=== PATIENT | male | born 1940 ===

== ENCOUNTER → 2019-05-26 | Outpatient (CLI) | payer MEDICARE, OTHER ==
[~2019-05-26] MED LIST: ASCO500 PO; ASPI81CH PO; Cipro500 MG PO; FINA5 PO; LEVSOD75 PO; Rapaflo8 MG PO; SIMV10 PO; Valium5 MG PO; Zofran Odt4 MG PO
== END ==
LOC: LAB 13:16 → LAB SHORT 13:16
DX: N39.0 Urinary tract infection, site not specified (principal); R30.0 Dysuria
CPT/HCPCS: 87086

== ENCOUNTER 2019-06-11 21:01 | Emergency (ER) | payer MEDICARE, OTHER ==
[~2019-06-11] VITALS: Ht 170.2 cm; Wt 63.5 kg
[2019-06-11] MEDS ORDERED: LEVSOD75 PO (21:37)
== END 2019-06-11 22:40 | disposition home or self-care (01) ==
LOC: ER 21:01
DX: T40.2X1A Poisoning by other opioids, accidental (unintentional), initial encounter (principal); Z88.8 Allergy status to other drugs, medicaments and biological substances; Z79.899 Other long term (current) drug therapy; Z79.82 Long term (current) use of aspirin; Z85.51 Personal history of malignant neoplasm of bladder
CPT/HCPCS: 99283

== ENCOUNTER → 2019-11-02 | Outpatient (CLI) | payer MEDICARE, OTHER | END | disposition home or self-care (01) | LOC: LAB 09:30 → LAB SHORT 09:30 | DX: C67.2 Malignant neoplasm of lateral wall of bladder (principal) | CPT/HCPCS: 88108 ==

== ENCOUNTER → 2020-01-31 | Outpatient (CLI) | payer MEDICARE, OTHER ==
[2020-01-31 14:09] LABS: Source, Urine Clean Catch
[2020-01-31 16:01] LABS: Bilirubin, Urine Neg (Neg); Blood, Urine 4+ (Neg); Glucose Qualitative, Urine Neg (Neg); Ketones, Urine Neg (Neg); Leukocyte Esterase, Urine 3+ (Neg); Nitrite, Urine Neg (Neg); Protein, Urine 2+ (Neg); Specific Gravity, Urine 1.015 (1.003-1.022); Urobilinogen, Urine NORM (Normal)
[2020-01-31 16:42] LABS: Appearance, Urine Hazy (Clear); Color, Urine Yellow (P-Yellow); Red Blood Cells, Urine TNTC /hpf (0-2); White Blood Cells, Urine TNTC /hpf (0-5)
[2020-01-31 16:43] LABS: Bacteria Many /hpf; Squamous Epithelial Cells Few /hpf (Few)
== END | disposition home or self-care (01) ==
LOC: LAB SHORT 13:48 → LAB 13:48 → EDSTATUS 16:04
PROVIDERS: Urology
DX: N39.0 Urinary tract infection, site not specified (principal)
CPT/HCPCS: 81001

== ENCOUNTER → 2020-05-01 | Outpatient (CLI) | payer MEDICARE, OTHER | END | disposition home or self-care (01) | LOC: LAB SHORT 03:17 → LAB 03:17 → LAB FUT 04-22 08:00 | PROVIDERS: Physician Assistant | DX: E11.8 Type 2 diabetes mellitus with unspecified complications (principal); I10 Essential (primary) hypertension | CPT/HCPCS: 81050; 82043; 82570 ==

== ENCOUNTER → 2020-09-19 | Outpatient (CLI) | payer MEDICARE, OTHER | LOC: LAB 15:13 → LAB SHORT 15:13 | DX: R30.0 Dysuria (principal) | CPT/HCPCS: 87086 ==

== ENCOUNTER → 2021-01-23 | Outpatient (CLI) | payer MEDICARE, OTHER ==
[~2021-01-23] MED LIST changes: -ASPI81CH PO; +Aspirin EC81 MG PO; +CEFD300 PO; +DOCU100 PO; +Lisinopril2.5 MG PO; +MAGCIT300 PO; +MIRALAX17 GM PO; +PANT40 PO; +SENN187 PO; +THERA-D2000 UNIT PO
== END | disposition home or self-care (01) ==
LOC: LAB SHORT 15:25 → LAB 15:25
DX: R35.0 Frequency of micturition (principal)
CPT/HCPCS: 87086

== ENCOUNTER → 2021-02-21 | Outpatient (CLI) | payer MEDICARE, OTHER ==
[~2021-02-21] MED LIST changes: +ASPI81CH PO; -Aspirin EC81 MG PO; -CEFD300 PO; -DOCU100 PO; -Lisinopril2.5 MG PO; -MAGCIT300 PO; -MIRALAX17 GM PO; -PANT40 PO; -SENN187 PO; -THERA-D2000 UNIT PO
== END | disposition home or self-care (01) ==
LOC: LAB SHORT 09:20
DX: R30.0 Dysuria (principal)
CPT/HCPCS: 87077; 87086; 87186

== ENCOUNTER → 2021-04-01 | Outpatient (CLI) | payer MEDICARE, OTHER ==
[~2021-04-01] MED LIST changes: -ASPI81CH PO; +Aspirin EC81 MG PO; +CEFD300 PO; +DOCU100 PO; +Lisinopril2.5 MG PO; +MAGCIT300 PO; +MIRALAX17 GM PO; +PANT40 PO; +SENN187 PO; +THERA-D2000 UNIT PO
== END ==
LOC: LAB 16:30 → LAB SHORT 16:30
DX: N39.9 Disorder of urinary system, unspecified (principal)
CPT/HCPCS: 87077; 87086; 87186

== ENCOUNTER → 2021-04-09 | Outpatient (CLI) | payer MEDICARE, OTHER ==
[2021-04-10 18:05] LABS: Appearance, Urine Hazy (Clear); Bilirubin, Urine Neg (Neg); Blood, Urine 5+ (Neg); Color, Urine Yellow (P-Yellow); Glucose Qualitative, Urine Neg (Neg); Ketones, Urine Neg (Neg); Leukocyte Esterase, Urine 3+ (Neg); Nitrite, Urine Neg (Neg); Protein, Urine 3+ (Neg); Specific Gravity, Urine 1.015 (1.003-1.022); Urobilinogen, Urine NORM (Normal)
[2021-04-10 18:41] LABS: White Blood Cells, Urine TNTC /hpf (0-5)
[2021-04-10 18:43] LABS: Bacteria Many /hpf; Squamous Epithelial Cells Rare /hpf (Few)
== END | disposition home or self-care (01) ==
LOC: LAB 15:52 → LAB SHORT 15:52
PROVIDERS: Physician Assistant
DX: N39.9 Disorder of urinary system, unspecified (principal)
CPT/HCPCS: 81001; 87086

== ENCOUNTER 2021-04-14 13:11 | Emergency (ER) | payer MEDICARE, OTHER ==
[~2021-04-14] VITALS: Ht 162.6 cm; Wt 55.3 kg
[~2021-04-14 13:11] MED LIST changes: -CEFD300 PO; -DOCU100 PO; -Lisinopril2.5 MG PO; -MAGCIT300 PO; -MIRALAX17 GM PO; -PANT40 PO; -SENN187 PO; -THERA-D2000 UNIT PO
[2021-04-14] MEDS ORDERED: MAGCIT300 PO (13:58)
== END 2021-04-14 13:58 | disposition home or self-care (01) ==
LOC: ER 13:11
DX: K59.00 Constipation, unspecified (principal); Z79.899 Other long term (current) drug therapy; Z79.82 Long term (current) use of aspirin; Z88.8 Allergy status to other drugs, medicaments and biological substances; Z88.6 Allergy status to analgesic agent
CPT/HCPCS: 99282

== ENCOUNTER 2021-04-14 23:57 | Emergency (ER) | payer MEDICARE, OTHER ==
[~2021-04-14] VITALS: Ht 162.6 cm; Wt 55.8 kg
[~2021-04-14 23:57] MED LIST changes: +MAGCIT300 PO
== END 2021-04-15 04:34 | disposition home or self-care (01) ==
LOC: ER 23:57
DX: K59.00 Constipation, unspecified (principal); Z88.8 Allergy status to other drugs, medicaments and biological substances; Z88.6 Allergy status to analgesic agent; Z79.82 Long term (current) use of aspirin; Z79.899 Other long term (current) drug therapy
CPT/HCPCS: 74018; 99283-25; A9270

== ENCOUNTER → 2021-04-17 | Outpatient (CLI) | payer MEDICARE, OTHER ==
[~2021-04-17] MED LIST changes: +CEFD300 PO; +DOCU100 PO; +Lisinopril2.5 MG PO; +MIRALAX17 GM PO; +PANT40 PO; +SENN187 PO; +THERA-D2000 UNIT PO
== END ==
LOC: LAB 16:03 → LAB SHORT 16:03
DX: R41.0 Disorientation, unspecified (principal)
CPT/HCPCS: 87086

== ENCOUNTER 2021-05-02 08:01 | Inpatient (IN) | payer MEDICARE, OTHER ==
[~2021-05-02] VITALS: Ht 162.6 cm; Wt 62.1 kg
[~2021-05-02 08:01] MED LIST changes: -CEFD300 PO; -DOCU100 PO; -Lisinopril2.5 MG PO; -MIRALAX17 GM PO; -PANT40 PO; -SENN187 PO; -THERA-D2000 UNIT PO
[2021-05-02] MEDS ORDERED: Lisinopril2.5 MG PO (08:24)
[2021-05-02] MEDS ORDERED: THERA-D2000 UNIT PO (08:26)
[2021-05-02] MEDS ORDERED: MIRALAX17 GM PO (08:26)
[2021-05-02 09:08] LABS: BASOPHILS ABSOLUTE AUTO 0.01 K/mm3 (0.00-0.23); BASOPHILS PERCENT AUTO 0 % (0-2); EOSINOPHILS PERCENT AUTO 0 % (0-6); Hematocrit 37.7 % (37.0-53.0); Hemoglobin 12.4 g/dL (13.5-17.5); IMMATURE GRAN PERCENT AUTO 1 % (0-1); LYMPHOCYTES ABSOLUTE AUTO 0.26 K/mm3 (0.84-5.20); LYMPHOCYTES PERCENT AUTO 2 % (21-46); MONOCYTES ABSOLUTE AUTO 0.74 K/mm3 (0.16-1.47); MONOCYTES PERCENT AUTO 5 % (4-13); Mean Corpuscular HGB Conc 32.9 g/dL (31.5-36.5); Mean Corpuscular Volume 94 fL (80-100); Mean Platelet Volume 10.4 fL (9.1-12.4); NEUTROPHILS ABSOLUTE AUTO 15.35 K/mm3 (1.96-9.15); NEUTROPHILS PERCENT AUTO 93 % (41-73); Platelet Count 246 K/mm3 (150-400); RDW Standard Deviation 45.5 fL (35.1-46.3); White Blood Cell Count 16.46 K/mm3 (4.00-11.30)
[2021-05-02 09:24] LABS: Albumin, Blood 3.3 g/dL (3.4-5.0); Albumin/Globulin Ratio 0.7 (0.8-1.8); Bilirubin, Total 0.6 mg/dL (0.1-1.0); Calcium, Blood 9.4 mg/dL (8.5-10.1); Creatinine, Blood 4.99 mg/dL (0.60-1.20); Globulin, Blood 4.6 g/dL (2.2-4.0); Potassium, Blood 5.9 mmol/L (3.5-5.5); Total Protein, Blood 7.9 g/dL (6.4-8.2)
[2021-05-02 15:51] LABS: Source, Urine Catheter
[2021-05-02 16:01] LABS: Appearance, Urine Cloudy (Clear); Bilirubin, Urine Neg (Neg); Blood, Urine 5+ (Neg); Color, Urine Yellow (P-Yellow); Glucose Qualitative, Urine Neg (Neg); Ketones, Urine Neg (Neg); Leukocyte Esterase, Urine 3+ (Neg); Nitrite, Urine Neg (Neg); Protein, Urine 2+ (Neg); Specific Gravity, Urine 1.015 (1.003-1.022); Urobilinogen, Urine NORM (Normal)
[2021-05-02 16:46] LABS: Red Blood Cells, Urine TNTC /hpf (0-2); White Blood Cells, Urine TNTC /hpf (0-5)
[2021-05-02 16:47] LABS: Bacteria Mod /hpf; Squamous Epithelial Cells Not Seen /hpf (Few)
--- NOTE | 2021-05-02 18:16 | NUR ---
SHIFT SUMMARY: ASSUMED CARE OF PATIENT UPON HIS ARRIVAL FROM ED AT 1236. WAS ABLE TO STAND PIVOT TO BED, GAIT IS VERY WEAK. PLACED ON TELEMETRY, IN SR AT 75. DENIED PAIN. ABDOMEN IS QUITE FIRM, BS HYPOACTIVE, BUT IS PASSING FLATUS. QUEZADA CATHETER PLACED IN ED FOR SEVERE RETENTION; URINE IS GARZON TO LIGHT PINK, VERY CLOUDY, URINE SPECIMEN SENT. IS NPO FOR POSSIBLE PROCEDURE BY DR. RAYO. SCD'S IN PLACE. SON AT BEDSIDE.
--- NOTE | 2021-05-02 21:08 | NUR ---
PT ARRIVED BACK TO ROOM [address] RAYO. PT HAD BILATERAL URETER STENTS AND BILATERAL NEPHROSTOMY TUBES PLACED. URINE IN QUEZADA CATH LIGHT RED WITH GOOD DRAINAGE. PINK DRAINAGE IN NEPHROSTOMY BAGS. PT AAOX3, ALERT AND SPEAKING TO STAFF. DENIES PAIN.
[2021-05-03 04:51] LABS: BASOPHILS ABSOLUTE AUTO 0.02 K/mm3 (0.00-0.23); BASOPHILS PERCENT AUTO 0 % (0-2); EOSINOPHILS ABSOLUTE AUTO 0.01 K/mm3 (0.00-0.68); EOSINOPHILS PERCENT AUTO 0 % (0-6); Hematocrit 34.3 % (37.0-53.0); Hemoglobin 11.5 g/dL (13.5-17.5); IMMATURE GRAN ABSOLUTE AUTO 0.11 K/mm3 (0.00-0.10); IMMATURE GRAN PERCENT AUTO 1 % (0-1); LYMPHOCYTES ABSOLUTE AUTO 0.55 K/mm3 (0.84-5.20); LYMPHOCYTES PERCENT AUTO 4 % (21-46); MONOCYTES ABSOLUTE AUTO 0.64 K/mm3 (0.16-1.47); MONOCYTES PERCENT AUTO 4 % (4-13); Mean Corpuscular HGB 31.8 pg (26.0-34.0); Mean Corpuscular HGB Conc 33.5 g/dL (31.5-36.5); Mean Corpuscular Volume 95 fL (80-100); Mean Platelet Volume 10.4 fL (9.1-12.4); NEUTROPHILS ABSOLUTE AUTO 13.67 K/mm3 (1.96-9.15); NEUTROPHILS PERCENT AUTO 91 % (41-73); Platelet Count 194 K/mm3 (150-400); RDW Coefficient Variation 13.3 % (11.7-14.2); RDW Standard Deviation 46.5 fL (35.1-46.3); Red Blood Cell Count 3.62 M/mm3 (4.30-5.90)
[2021-05-03 05:13] LABS: Albumin, Blood 2.6 g/dL (3.4-5.0); Albumin/Globulin Ratio 0.7 (0.8-1.8); Bilirubin, Total 0.6 mg/dL (0.1-1.0); Bun/Creatinine Ratio 21.3 (12.0-20.0); Calcium, Blood 8.9 mg/dL (8.5-10.1); Creatinine, Blood 2.53 mg/dL (0.60-1.20); Globulin, Blood 3.9 g/dL (2.2-4.0); Potassium, Blood 4.1 mmol/L (3.5-5.5); Total Protein, Blood 6.5 g/dL (6.4-8.2)
--- NOTE | 2021-05-03 05:22 | NUR ---
ASSISTANT GOLF COURSE SUPERINTENDENT SUMMARY PT TAKEN TO DIE TROUBLE SHOOTER AT START OF SHIFT BY DR RAYO FOR PLACEMENT OF BILAT NEPHROSTOMIES AND BILATERAL URETER STENDS. SURGICAL SITES C/D/I. LIGHT PINK URINE DRAINAGE INTO BOTH NEPHROSTOMIES. DARKER PINK DRAINAGE INTO QUEZADA POST PROCEDURE BUT HAS LIGHTENED UP THROUGH THE NIGHT. RENAL FUNCTION MUCH IMPROVED WITH AM LABS. PT AAOX3 BUT DOES SEEM A BIT CONFUSED/DISORIENTED AT TIMES. BED ALARM ON FOR SAFETY PT TRIED TO GET OOB ONCE TO "CHECK ON HIS SON". PT HAS SLEPT OFF/ON TONIGHT. PT DENIES PAIN. VSS, WILL CONTINUE TO MONITOR.
--- NOTE | 2021-05-04 05:38 | NUR ---
DRY PLASTERER SUMMARY AWAKE AT INTERVALS, MULTIPLE ATTEMPTS TO CLIMB OUT OF BED, HIGH FALL RISK. JOSSY RESTRAINT/ 4 RAILS ORDER OBTAINED. IVF INFUSING ORDERED. BILATERAL UROSTOMIES/QUEZADA DRAINING. SEE DOC FLOW SHEETS FOR AMTS. CALL LIGHT IN REACH
[2021-05-04 08:26] LABS: BASOPHILS ABSOLUTE AUTO 0.01 K/mm3 (0.00-0.23); BASOPHILS PERCENT AUTO 0 % (0-2); EOSINOPHILS ABSOLUTE AUTO 0.03 K/mm3 (0.00-0.68); EOSINOPHILS PERCENT AUTO 0 % (0-6); Hematocrit 30.6 % (37.0-53.0); Hemoglobin 10.6 g/dL (13.5-17.5); IMMATURE GRAN ABSOLUTE AUTO 0.03 K/mm3 (0.00-0.10); IMMATURE GRAN PERCENT AUTO 0 % (0-1); LYMPHOCYTES ABSOLUTE AUTO 0.36 K/mm3 (0.84-5.20); LYMPHOCYTES PERCENT AUTO 4 % (21-46); MONOCYTES ABSOLUTE AUTO 0.43 K/mm3 (0.16-1.47); MONOCYTES PERCENT AUTO 5 % (4-13); Mean Corpuscular HGB 32.3 pg (26.0-34.0); Mean Corpuscular HGB Conc 34.6 g/dL (31.5-36.5); Mean Corpuscular Volume 93 fL (80-100); Mean Platelet Volume 10.7 fL (9.1-12.4); NEUTROPHILS ABSOLUTE AUTO 7.39 K/mm3 (1.96-9.15); NEUTROPHILS PERCENT AUTO 90 % (41-73); Platelet Count 195 K/mm3 (150-400); RDW Coefficient Variation 13.3 % (11.7-14.2); RDW Standard Deviation 45.4 fL (35.1-46.3); Red Blood Cell Count 3.28 M/mm3 (4.30-5.90); White Blood Cell Count 8.25 K/mm3 (4.00-11.30)
[2021-05-04 08:36] LABS: Albumin, Blood 2.3 g/dL (3.4-5.0); Anion Gap 7 mmol/L (6-16); Blood Urea Nitrogen 37 mg/dL (8-24); Bun/Creatinine Ratio 21.8 (12.0-20.0); CO2, Blood 19 mmol/L (21-32); Calcium, Blood 8.3 mg/dL (8.5-10.1); Chloride, Blood 118 mmol/L (98-108); Glomerular Filtration Rate 41 (60-); Glucose, Blood 93 mg/dL (70-99); Phosphorus, Blood 2.3 mg/dL (2.5-4.9); Potassium, Blood 3.5 mmol/L (3.5-5.5); Sodium, Blood 144 mmol/L (136-145)
--- NOTE | 2021-05-04 15:22 | NUR ---
PT SON IN ROOM. PT REMAINS ORIENTED TO SELF AND FAM. VERY SKETCHY DETAILS. PLAN IS TO MOVE TO BACK [place] WHERE CAN BE TRIED ON REMOVE VEST RESTRAINT AND CAN BE ON CAMERA. HOPE IS TO KEEP EYE ON PT TO MAKE SURE NOT PULLS UROSTOMY BAGS.
--- NOTE | 2021-05-04 16:46 | NUR ---
TELE REPOORTS LOWEST H/R IS 48, BUT MOSTLY TERNDING AT THIS AFT 50-65. PT CONTINUES TO MAINTAIN BP 120-130'S. PT CONTIINUES TO MAINTAIN CONFUSION, PICKING AT THINGS UNSEEN IN AIR. CALLED SHE WILL REVIEW. NO NEW ORDERS AT THIS TIME.
--- NOTE | 2021-05-04 20:28 | NUR ---
ASSUMED CARE OF PT. RESTING IN BED, JOSSY VEST IN PLACE. WILL CONT TO MONITOR.
[2021-05-05 05:36] LABS: Albumin, Blood 2.2 g/dL (3.4-5.0); Anion Gap 5 mmol/L (6-16); Blood Urea Nitrogen 28 mg/dL (8-24); Bun/Creatinine Ratio 16.7 (12.0-20.0); CO2, Blood 21 mmol/L (21-32); Calcium, Blood 8.3 mg/dL (8.5-10.1); Chloride, Blood 120 mmol/L (98-108); Creatinine, Blood 1.68 mg/dL (0.60-1.20); Glomerular Filtration Rate 42 (60-); Glucose, Blood 97 mg/dL (70-99); Magnesium, Blood 1.6 mg/dL (1.6-2.4); Phosphorus, Blood 2.4 mg/dL (2.5-4.9); Potassium, Blood 3.6 mmol/L (3.5-5.5); Sodium, Blood 146 mmol/L (136-145)
--- NOTE | 2021-05-05 06:32 | NUR ---
SHIFT SUMMARY- PT. A&O TO SELF BUT CONFUSED. PT. RESTLESS IN BED MOST OF THE NIGHT, ATTEMPTING TO CLIMB OOB. JOSSY VEST IN PLACE. S/P HOWARD NEPHROSTOMY TUBES DRAINING PINK COLORED URINE, QUEZADA CATHETER DRAINING RED COLORED URINE. PT. DID NOT APPEAR TO BE IN PAIN OR HAVE ANY DISCOMFORT DURING THE NIGHT. AWAKE ALL NIGHT, NO APPARENT DISTRESS NOTED. CALL LIGHT WITHIN REACH.
--- NOTE | 2021-05-05 17:51 | NUR ---
PT AOX2 AND COOPERATIVE OF CARE BEING PLEASANTLY CONFUSED. PT HAS WORKED WITH OT AND PHYSICAL THERAPY AND WAS A ONE PERSON WITH GAITBELT AND WALKER. PT IS SITTING UP IN CHAIR AT THIS TIME WITH DAUGHTER VISITING HIM. CALL LIGHT IS WITHIN REACH AND CHAIR ALARM IN PLACE. WILL CONTINUE TO MONITOR.
[2021-05-06 05:11] LABS: Hematocrit 34.4 % (37.0-53.0); Hemoglobin 11.3 g/dL (13.5-17.5)
[2021-05-06 05:35] LABS: Albumin, Blood 2.1 g/dL (3.4-5.0); Anion Gap 7 mmol/L (6-16); Blood Urea Nitrogen 25 mg/dL (8-24); Bun/Creatinine Ratio 16.9 (12.0-20.0); CO2, Blood 18 mmol/L (21-32); Chloride, Blood 120 mmol/L (98-108); Creatinine, Blood 1.48 mg/dL (0.60-1.20); Glomerular Filtration Rate 48 (60-); Glucose, Blood 112 mg/dL (70-99); Phosphorus, Blood 2.4 mg/dL (2.5-4.9); Potassium, Blood 3.4 mmol/L (3.5-5.5); Sodium, Blood 145 mmol/L (136-145)
--- NOTE | 2021-05-06 06:12 | NUR ---
SHIFT SUMMARY PATIENT ALERT AND ORIENTED TO SELF. HAD NO COMPLAINTS OF PAIN OR SHORTNESS OF BREATH. SLEPT WELL OVERNIGHT. NEPHROSTOMIES AND QUEZADA PATENT AND DRAINING TO GRAVITY. NO ACUTE ISSUES NOTED OVERNIGHT. IV PATENT AND INFUSING. BED IN LOWEST POSITION WITH WHEELS LOCKED AND ALARM ON. CALL LIGHT WTIHIN REACH. REPORT GIVEN TO ONCOMING RN.
--- NOTE | 2021-05-06 13:58 | NUR ---
Pt. is lying in bed resting and is much better prayed for pt.
[2021-05-06] MEDS ORDERED: PANT40 PO (14:29)
[2021-05-06] MEDS ORDERED: DOCU100 PO (14:29)
[2021-05-06] MEDS ORDERED: SENN187 PO (14:30)
--- NOTE | 2021-05-06 15:38 | NUR ---
PT TO DISCHARGE HOME. IV REMOVED ALONG WITH QUEZADA. PT TOLERATED WELL. FAMILY AT BEDSIDE AND THIS NURSE EDUCATED PT AND FAMILY ON NEW NEPHROSTOMY APPLIANCE AND HOW TO DRAIN AND MAINTAIN. PT AND FAMILY TELE APPOINTMENT MADE WITH UROLOGIST THIS WEDNESDAY. NURSE EDUCATED PT ON NEW MEDS AND HOW TO HELP PT WITH CONSTIPATION. PT DRESSED BY FAMILY AND TO BE TAKEN DOWN VIA WC. MEDS FAXED TO [facility] AND PT FAMILY EDUCATED REGARDING NEW MEDICATION.
== END 2021-05-06 16:05 | disposition home health service (06) | DRG 871 ==
LOC: ER 08:01 → MEDS 11:43
PROVIDERS: Internal Medicine; Physician Assistant; ADMIT Internal Medicine
PROC: 0T9430Z Drainage of Left Kidney Pelvis with Drainage Device, Percutaneous Approach (ICD-10-PCS; principal; 2021-05-06)
PROC: 0T9330Z Drainage of Right Kidney Pelvis with Drainage Device, Percutaneous Approach (ICD-10-PCS; 2021-05-06)
PROC: 0T783DZ Dilation of Bilateral Ureters with Intraluminal Device, Percutaneous Approach (ICD-10-PCS; 2021-05-06)
DX: A41.9 Sepsis, unspecified organism (principal); G92 Toxic encephalopathy; N17.9 Acute kidney failure, unspecified; E87.2 Acidosis; E87.1 Hypo-osmolality and hyponatremia; N13.8 Other obstructive and reflux uropathy; N13.30 Unspecified hydronephrosis; C67.9 Malignant neoplasm of bladder, unspecified; Z66 Do not resuscitate; E03.9 Hypothyroidism, unspecified; R33.8 Other retention of urine; R65.20 Severe sepsis without septic shock; K59.00 Constipation, unspecified; N40.1 Benign prostatic hyperplasia with lower urinary tract symptoms; F03.90 Unspecified dementia, unspecified severity, without behavioral disturbance, psychotic disturbance, mood disturbance, and anxiety; Z79.82 Long term (current) use of aspirin; Z79.899 Other long term (current) drug therapy; Z88.6 Allergy status to analgesic agent; Z88.8 Allergy status to other drugs, medicaments and biological substances; Z90.89 Acquired absence of other organs; Z98.890 Other specified postprocedural states; Z92.25 Personal history of immunosuppression therapy
CPT/HCPCS: 36415; 50695; 51702; 74176; 76937; 80053; 80069; 81001; 83605; 83690; 83735; 84132; 84443; 85014; 85018; 85025; 87040; 87086; 93005; 93010; 96360; 96361; 97162; 97166; 97530; 99152; 99153; 99285-25; A9270; C1729; C1769; C1887; C2617; C9113; J0295; J0610; J2250; J3010; J7030; J7040; J7060; Q9967

== ENCOUNTER 2021-05-07 18:28 | Observation (INO) | payer MEDICARE, OTHER ==
[~2021-05-07] VITALS: Ht 162.6 cm; Wt 63.5 kg
[~2021-05-07 18:28] MED LIST changes: +DOCU100 PO; +Lisinopril2.5 MG PO; +MIRALAX17 GM PO; +PANT40 PO; +SENN187 PO; +THERA-D2000 UNIT PO
[2021-05-08 00:07] LABS: Bun/Creatinine Ratio 13.9 (12.0-20.0); Creatinine, Blood 1.51 mg/dL (0.60-1.20); Potassium, Blood 3.3 mmol/L (3.5-5.5)
--- NOTE | 2021-05-08 05:32 | NUR ---
SUMMARY PT ARRIVED TO FLOOR IN NO DISTRESS. PT HAD NOTED BM IN PULL UP WHEN TRANSFERRED TO BED. PT ALSO HAD ORDERED ENEMA WITH BM NOTED. PT TOLERATED ENEMA WELL. PT DENIES PAIN OR SOB. PT ONLY C/O BEING COLD AND TIRED. PT WARMED AND HAS BEEN SLEEPING IN NO DISTRESS. CALL LIGHT IN REACH. BED ALARM ON.
[2021-05-08 10:49] LABS: Bun/Creatinine Ratio 13.6 (12.0-20.0); Calcium, Blood 8.7 mg/dL (8.5-10.1); Creatinine, Blood 1.47 mg/dL (0.60-1.20); Potassium, Blood 3.5 mmol/L (3.5-5.5)
--- NOTE | 2021-05-08 16:52 | NUR ---
Received call from Order Fulfillment Specialistwalker [place] and discussed case. Pt's daughter at bedside and is expressing fears that Pt may be nearing end of life. Daughter is requesting to speak with Palliative Care. Pt resting in bed upon arrival. Pt responds slowly and voice is faint. Pt appears weak and frail. Daughter Radha arrives to room and conversation outside of room takes place. Offered therapeutic listening and emotional support as Radha is intermittently tearful. Answered questions regarding hospice and homehealth. Discussed the importance of family having routine conversations with Pt regarding goals and values. Radha reports Pt has urologist in [place] who treats Pt's bladder cancer. Radha describes the treatment as palliative in which the cancer will continue to re-occur. Pt's son Virgil arrives and conversation continues. Family is requesting to speak with hospitalist regarding plan of care. Dr Ruelas arrives and listens to family concerns including the possibility of one of the nephrostomy tubes being pulled. Dr Ruelas will place consult for Dr Huggins to examine Pt. Dr Ruelas continues with answering questions until family is satisfied. Family expresses appreciation of meeting. No other concerns reported at this time. Spoke with Pt's primary RN Buffy and discussed case. Palliative Care will remain available.
--- NOTE | 2021-05-08 16:59 | NUR ---
Spiritual care note: Dtr, Halie, asked to speak to this industrial recruiter outside of room. Pt appeared to be sleeping. Halie was tearful and appeared to be processing pt's decline as she spoke. She is concerned with lack of clear direction and her father's weakness. She and her brother are trying to care for pt. Neither is local. She tells me that pt is a "very elegant, private, meticulous man." She says that bladder and colon problems have been embaressing to pt. She expressed concern about "putting him through any more proceedures." Pt was active in his Church pearl until he was excommunicated for back in the . He has never spoken of his pearl since, according to Halie. She suspects he may be fearful of dying because of some very old Church ideas. I advised that myself or other industrial recruiter would be available to certified travel counselor him on his concerns/fears. She asked that "we" do this another time, as pt is having trouble staying awake. Prayer and gentle certified travel counselor well recieved. Later, I was present at Halie's request for family meeting with and Dov from palliative care. Compress Engineer services will remain available.
--- NOTE | 2021-05-08 18:16 | NUR ---
SHIFT SUMMARY- PT IS A/O, PLESANT AND COOPERATIVE. HE SLEPT FOR MUCH OF THIS SHIFT. SHE BECAME MORE AWAKE THIS EVENING. PT FAMILY CAME IN AND DISCUSSED TREATMENT PLAN WITH , PALATIVE CARE NURSE, AND SPIRITUAL CARE. HE HAD THREE BM THIS SHIFT. HIS APPETITE WAS POOR IN THE BEGINING OF THE SHIFT, HE DID REPORT FEELING HUNGRY THIS EVENING. HE WAS UP TO THE BSC THIS EVENING. HIS BED IS IN THE LOW POSTION AND CALL LIGHT IS WITHIN REACH.
[2021-05-09 05:01] LABS: BASOPHILS ABSOLUTE AUTO 0.02 K/mm3 (0.00-0.23); BASOPHILS PERCENT AUTO 0 % (0-2); EOSINOPHILS ABSOLUTE AUTO 0.18 K/mm3 (0.00-0.68); EOSINOPHILS PERCENT AUTO 3 % (0-6); Hematocrit 33.3 % (37.0-53.0); Hemoglobin 10.8 g/dL (13.5-17.5); IMMATURE GRAN ABSOLUTE AUTO 0.02 K/mm3 (0.00-0.10); IMMATURE GRAN PERCENT AUTO 0 % (0-1); LYMPHOCYTES ABSOLUTE AUTO 0.53 K/mm3 (0.84-5.20); LYMPHOCYTES PERCENT AUTO 10 % (21-46); MONOCYTES ABSOLUTE AUTO 0.43 K/mm3 (0.16-1.47); MONOCYTES PERCENT AUTO 8 % (4-13); Mean Corpuscular HGB 30.7 pg (26.0-34.0); Mean Corpuscular HGB Conc 32.4 g/dL (31.5-36.5); Mean Corpuscular Volume 95 fL (80-100); Mean Platelet Volume 9.9 fL (9.1-12.4); NEUTROPHILS ABSOLUTE AUTO 4.21 K/mm3 (1.96-9.15); NEUTROPHILS PERCENT AUTO 78 % (41-73); Platelet Count 174 K/mm3 (150-400); RDW Coefficient Variation 13.8 % (11.7-14.2); RDW Standard Deviation 48.3 fL (35.1-46.3); Red Blood Cell Count 3.52 M/mm3 (4.30-5.90); White Blood Cell Count 5.39 K/mm3 (4.00-11.30)
[2021-05-09 05:51] LABS: Albumin, Blood 2.2 g/dL (3.4-5.0); Anion Gap 6 mmol/L (6-16); Blood Urea Nitrogen 28 mg/dL (8-24); Bun/Creatinine Ratio 15.2 (12.0-20.0); CO2, Blood 24 mmol/L (21-32); Calcium, Blood 8.3 mg/dL (8.5-10.1); Chloride, Blood 116 mmol/L (98-108); Creatinine, Blood 1.84 mg/dL (0.60-1.20); Glomerular Filtration Rate 38 (60-); Glucose, Blood 115 mg/dL (70-99); Phosphorus, Blood 2.3 mg/dL (2.5-4.9); Potassium, Blood 3.9 mmol/L (3.5-5.5); Sodium, Blood 146 mmol/L (136-145)
[2021-05-09] MEDS ORDERED: MIRALAX17 GM PO (17:00)
[2021-05-09] MEDS ORDERED: CEFD300 PO (17:02)
[2021-05-09 17:49] LABS: Source, Urine Urostomy Bag
[2021-05-09 17:57] LABS: Appearance, Urine Hazy (Clear); Bilirubin, Urine Neg (Neg); Blood, Urine 5+ (Neg); Color, Urine Yellow (P-Yellow); Glucose Qualitative, Urine Neg (Neg); Ketones, Urine Neg (Neg); Leukocyte Esterase, Urine 3+ (Neg); Nitrite, Urine Neg (Neg); Protein, Urine 2+ (Neg); Specific Gravity, Urine 1.015 (1.003-1.022); Urobilinogen, Urine NORM (Normal)
[2021-05-09 18:06] LABS: Red Blood Cells, Urine 50-100 /hpf (0-2); White Blood Cells, Urine 25-50 /hpf (0-5)
[2021-05-09 18:07] LABS: Amorphous Light (0-Heavy); Bacteria Many /hpf; Squamous Epithelial Cells Few /hpf (Few)
== END 2021-05-09 17:56 | disposition home health service (06) ==
LOC: ER 18:28 → MEDS 18:29 → ER 05-08 02:03 → MEDS 05-08 02:03
PROVIDERS: Internal Medicine; Student in an Organized Health Care Education/Training Program; ADMIT Internal Medicine
DX: K56.41 Fecal impaction (principal); C67.9 Malignant neoplasm of bladder, unspecified; N18.30 Chronic kidney disease, stage 3 unspecified; N17.9 Acute kidney failure, unspecified; E03.9 Hypothyroidism, unspecified; N40.3 Nodular prostate with lower urinary tract symptoms; N13.1 Hydronephrosis with ureteral stricture, not elsewhere classified; E87.6 Hypokalemia; F03.90 Unspecified dementia, unspecified severity, without behavioral disturbance, psychotic disturbance, mood disturbance, and anxiety; Z88.6 Allergy status to analgesic agent; Z88.8 Allergy status to other drugs, medicaments and biological substances; Z79.82 Long term (current) use of aspirin; Z93.6 Other artificial openings of urinary tract status; Z96.0 Presence of urogenital implants
CPT/HCPCS: 36415; 74176; 80048; 80069; 81001; 85025; 87086; 96372; 99284-25; A9270; G0378; J1650; J3480

== ENCOUNTER 2021-06-16 06:30 | Day surgery (SDC) | payer MEDICARE, OTHER ==
[~2021-06-16] VITALS: Ht 157.5 cm; Wt 60.0 kg
[~2021-06-16 06:30] MED LIST changes: +CEFD300 PO
[2021-06-16] MEDS ORDERED: CEPH250A PO (07:06)
--- NOTE | 2021-06-16 09:27 | NUR ---
DISCHARGE PT REMAINED A&0X3 AND DENIED ANY PAIN UPON ARRIVAL FROM BEHAVIOR MANAGEMENT SPECIALIST (PT DID NOT RECIEVE SEDATION MEDICATIONS). VVS. NEPHROSTOMY SITES REMAIN CDI-NO HEMATOMA NOTED. LIGHT PINK COLOR NOTED IN THE RIGHT NEPHROSTOMY TUBE FROM PROCEDURE. LEFT NEPHROSTOMY CLEAR YELLOW COLOR FLUID NOTED. LA WAS INFORMED TO DRINK PLENTY OF FLUID TO HELP FLUSH OUT THE CONTRANST USED IN THE PROCEDURE. DISCHARGE INSTRUCTIONS GONE OVER WITH PT AND SON. PT AND SON VERBALLY STATED THE UNDERSTANDING OF THE DISCHARGE EDUCATION AND DENIED ANY QUESTIONS AT THIS TIME. A MESSAGE HAS BEEN LEFT WITH [facility]ARSHANA [facility] TO A FOLLOW-UP APPOINTMENT FOR THIS PT. PT REFUSED WHEELCHAIR AND THIS NURSE WALKED OUT TO MEET WITH SON.
== END 2021-06-16 09:00 | disposition home or self-care (01) ==
LOC: MHTC 06:30
DX: C67.9 Malignant neoplasm of bladder, unspecified (principal); N13.2 Hydronephrosis with renal and ureteral calculous obstruction; Z88.8 Allergy status to other drugs, medicaments and biological substances
CPT/HCPCS: 50431; J7030; J7050; Q9967

== ENCOUNTER → 2021-07-03 | Outpatient (CLI) | payer MEDICARE, OTHER ==
[~2021-07-03] MED LIST changes: +CEPH250A PO
== END | disposition home or self-care (01) ==
LOC: LAB 12:00 → LAB SHORT 12:00
DX: R30.0 Dysuria (principal); R82.90 Unspecified abnormal findings in urine
CPT/HCPCS: 87077; 87086; 87186

== ENCOUNTER 2021-08-15 00:16 | Day surgery (SDC) | payer MEDICARE, OTHER | END 2021-08-15 10:37 | disposition home or self-care (01) | LOC: ATC 00:16 | DX: Z43.6 Encounter for attention to other artificial openings of urinary tract (principal); N18.31 Chronic kidney disease, stage 3a; E03.9 Hypothyroidism, unspecified; Z88.8 Allergy status to other drugs, medicaments and biological substances | CPT/HCPCS: 99212 ==

== ENCOUNTER 2021-08-22 01:35 | Day surgery (SDC) | payer MEDICARE, OTHER | END 2021-08-22 10:22 | disposition home or self-care (01) | LOC: ATC 01:35 | DX: Z43.6 Encounter for attention to other artificial openings of urinary tract (principal) | CPT/HCPCS: 99211 ==

== ENCOUNTER 2021-08-29 04:09 | Day surgery (SDC) | payer MEDICARE, OTHER ==
--- NOTE | 2021-08-29 10:27 | NUR ---
PT'S SON REPORTS HE HAS BEEN IN CONTACT WITH DR. RAYO RE: DRAINAGE FROM R NEPHROSTOMY SITE. SON REPORTS MD PLANS TO EXCHANGE THE NEPHROSTOMY TUBE. SKIN IS EXCORIATED ON BOTTOM EDGE ON RIGHT NEPHROSTOMY DRESSING. GAUZE APPLIED ONLY OVER THE TOP OF THE STAYFIX DRESSING AND IS NOT IN DIRECT CONTACT WITH PT'S SKIN. EDUCATION DONE. PT'S SON WILL CALL FOR APPOINTMENT TO CHANGE DRESSING IF IT BECOMES SOILED AND AND THE GAUZE IS UNABLE TO CONTAIN ALL THE DRAINAGE.
== END 2021-08-29 10:13 | disposition home or self-care (01) ==
LOC: ATC 04:09
DX: Z43.6 Encounter for attention to other artificial openings of urinary tract (principal)
CPT/HCPCS: 99211

== ENCOUNTER 2021-09-05 02:57 | Day surgery (SDC) | payer MEDICARE, OTHER | END 2021-09-05 10:19 | disposition home or self-care (01) | LOC: ATC 02:57 | DX: Z43.6 Encounter for attention to other artificial openings of urinary tract (principal) | CPT/HCPCS: 99211 ==

== ENCOUNTER → 2021-09-09 | Outpatient (CLI) | payer MEDICARE, OTHER ==
[~2021-09-09] MED LIST changes: +CIPR500 PO; +RIVASTIGMINE1.5 M1 PO
== END | disposition home or self-care (01) ==
LOC: LAB 15:24 → LAB SHORT 15:24
DX: N39.9 Disorder of urinary system, unspecified (principal); R82.81 Pyuria
CPT/HCPCS: 87077; 87086; 87186

== ENCOUNTER 2021-09-12 05:11 | Day surgery (SDC) | payer MEDICARE, OTHER ==
[~2021-09-12 05:11] MED LIST changes: -CIPR500 PO; -RIVASTIGMINE1.5 M1 PO
[2021-09-12] MEDS ORDERED: CIPR500 PO (10:22)
[2021-09-12] MEDS ORDERED: RIVASTIGMINE1.5 M1 PO (10:23)
== END 2021-09-12 10:18 | disposition home or self-care (01) ==
LOC: ATC 05:11
DX: Z43.6 Encounter for attention to other artificial openings of urinary tract (principal)
CPT/HCPCS: 99211

== ENCOUNTER 2021-09-19 05:48 | Day surgery (SDC) | payer MEDICARE, OTHER ==
[~2021-09-19 05:48] MED LIST changes: +CIPR500 PO; +RIVASTIGMINE1.5 M1 PO
== END 2021-09-19 08:51 | disposition home or self-care (01) ==
LOC: ATC 05:48
DX: Z43.6 Encounter for attention to other artificial openings of urinary tract (principal)
CPT/HCPCS: 99211

== ENCOUNTER 2021-09-26 04:24 | Day surgery (SDC) | payer MEDICARE, OTHER | END 2021-09-26 08:50 | disposition home or self-care (01) | LOC: ATC 04:24 | DX: Z43.6 Encounter for attention to other artificial openings of urinary tract (principal); R82.81 Pyuria; N18.31 Chronic kidney disease, stage 3a; F03.90 Unspecified dementia, unspecified severity, without behavioral disturbance, psychotic disturbance, mood disturbance, and anxiety; E78.00 Pure hypercholesterolemia, unspecified; E03.9 Hypothyroidism, unspecified; Z85.51 Personal history of malignant neoplasm of bladder; Z79.82 Long term (current) use of aspirin; Z79.890 Hormone replacement therapy; Z79.899 Other long term (current) drug therapy; Z88.6 Allergy status to analgesic agent; Z88.8 Allergy status to other drugs, medicaments and biological substances | CPT/HCPCS: 99211 ==

== ENCOUNTER 2021-09-30 10:29 | Day surgery (SDC) | payer MEDICARE, OTHER ==
[~2021-09-30] VITALS: Ht 157.5 cm; Wt 63.0 kg
--- NOTE | 2021-09-30 13:45 | NUR ---
PT AND SON VERBALIZED UNDERSTANDING OF WRITTEN AND VERBAL D/C INST. IV REMOVED. PT TAKEN OUT OF THE HRT CENTER VIA W/C.
== END 2021-09-30 13:48 | disposition home or self-care (01) ==
LOC: MHTC 10:29
DX: T83.092A Other mechanical complication of nephrostomy catheter, initial encounter (principal); C67.9 Malignant neoplasm of bladder, unspecified; N13.2 Hydronephrosis with renal and ureteral calculous obstruction; N40.0 Benign prostatic hyperplasia without lower urinary tract symptoms; F03.90 Unspecified dementia, unspecified severity, without behavioral disturbance, psychotic disturbance, mood disturbance, and anxiety; E78.00 Pure hypercholesterolemia, unspecified; E03.9 Hypothyroidism, unspecified; Z88.6 Allergy status to analgesic agent; Z85.53 Personal history of malignant neoplasm of renal pelvis
CPT/HCPCS: 50435; 99152; C1729; C1769; C1887; J2250; J3010; J7040; J7050; Q9967

== ENCOUNTER 2021-10-03 03:18 | Day surgery (SDC) | payer MEDICARE, OTHER | END 2021-10-03 08:45 | disposition home or self-care (01) | LOC: ATC 03:18 | DX: Z43.6 Encounter for attention to other artificial openings of urinary tract (principal); N18.31 Chronic kidney disease, stage 3a; Z85.51 Personal history of malignant neoplasm of bladder; Z88.8 Allergy status to other drugs, medicaments and biological substances ==

== ENCOUNTER 2021-10-10 01:48 | Day surgery (SDC) | payer MEDICARE, OTHER | END 2021-10-10 08:50 | disposition home or self-care (01) | LOC: ATC 01:48 | DX: Z43.6 Encounter for attention to other artificial openings of urinary tract (principal); N18.31 Chronic kidney disease, stage 3a; E03.9 Hypothyroidism, unspecified; Z85.51 Personal history of malignant neoplasm of bladder; Z88.8 Allergy status to other drugs, medicaments and biological substances | CPT/HCPCS: 99211 ==

== ENCOUNTER → 2021-10-17 | Outpatient (CLI) | payer MEDICARE, OTHER | END | disposition home or self-care (01) | LOC: LAB 17:49 → LAB SHORT 17:49 | DX: R30.0 Dysuria (principal) | CPT/HCPCS: 87077; 87086; 87186 ==

== ENCOUNTER → 2021-10-23 | Outpatient (CLI) | payer MEDICARE, OTHER ==
[~2021-10-23] MED LIST changes: +TOBRAMYCIN IV
== END | disposition home or self-care (01) ==
LOC: LAB 15:31 → LAB SHORT 15:31
DX: N39.0 Urinary tract infection, site not specified (principal)
CPT/HCPCS: 87077; 87086; 87186

== ENCOUNTER 2021-10-24 13:13 | Day surgery (SDC) | payer MEDICARE, OTHER ==
[~2021-10-24 13:13] MED LIST changes: -TOBRAMYCIN IV
== END 2021-10-24 23:06 | disposition home or self-care (01) ==
LOC: ATC 13:13
DX: N39.0 Urinary tract infection, site not specified (principal); B96.5 Pseudomonas (aeruginosa) (mallei) (pseudomallei) as the cause of diseases classified elsewhere; F03.90 Unspecified dementia, unspecified severity, without behavioral disturbance, psychotic disturbance, mood disturbance, and anxiety; N18.31 Chronic kidney disease, stage 3a; E03.9 Hypothyroidism, unspecified; Z85.51 Personal history of malignant neoplasm of bladder
CPT/HCPCS: 82565

== ENCOUNTER 2021-10-25 13:08 | Day surgery (SDC) | payer MEDICARE, OTHER ==
--- NOTE | 2021-10-25 13:28 | NUR ---
PT AMBULATES TO ROOM FOR HIS ANTIBIOTICS. PT IS VERY SLEEPY.
[2021-10-26] MEDS ORDERED: TOBRAMYCIN IV (12:18)
== END 2021-10-25 13:55 | disposition home or self-care (01) ==
LOC: ATC 13:08
DX: N39.0 Urinary tract infection, site not specified (principal); B96.5 Pseudomonas (aeruginosa) (mallei) (pseudomallei) as the cause of diseases classified elsewhere
CPT/HCPCS: J3260

== ENCOUNTER 2021-10-26 08:55 | Day surgery (SDC) | payer MEDICARE, OTHER ==
--- NOTE | 2021-10-26 09:37 | NUR ---
UNABLE TO DRAW BLOOD FOR THIS AM LAB DRAW.
[2021-10-26 10:17] LABS: Creatinine, Blood 1.34 mg/dL (0.60-1.20); Tobramycin, Trough 0.6 ug/mL (0.0-1.9)
[2021-10-26] MEDS ORDERED: TOBRAMYCIN IV (12:18)
--- NOTE | 2021-10-26 12:21 | NUR ---
BLOOD DRAWN FROM R AC AFTER 2 ATTEMPTS ON L ARM AND IV SITE.
== END 2021-10-26 22:34 | disposition home or self-care (01) ==
LOC: ATC 08:55
PROVIDERS: Physician Assistant
DX: N39.0 Urinary tract infection, site not specified (principal); B96.5 Pseudomonas (aeruginosa) (mallei) (pseudomallei) as the cause of diseases classified elsewhere
CPT/HCPCS: 80200; 82565; J3260

== ENCOUNTER 2021-10-27 02:27 | Day surgery (SDC) | payer MEDICARE, OTHER ==
[~2021-10-27 02:27] MED LIST changes: +TOBRAMYCIN IV
== END 2021-10-27 10:10 | disposition home or self-care (01) ==
LOC: ATC 02:27
DX: N39.0 Urinary tract infection, site not specified (principal); B96.5 Pseudomonas (aeruginosa) (mallei) (pseudomallei) as the cause of diseases classified elsewhere; Z93.6 Other artificial openings of urinary tract status
CPT/HCPCS: 96365; 99211; J3260

== ENCOUNTER 2021-10-28 01:19 | Day surgery (SDC) | payer MEDICARE, OTHER | END 2021-10-28 10:30 | disposition home or self-care (01) | LOC: ATC 01:19 | DX: N39.0 Urinary tract infection, site not specified (principal); B96.5 Pseudomonas (aeruginosa) (mallei) (pseudomallei) as the cause of diseases classified elsewhere | CPT/HCPCS: 96365; J3260 ==

== ENCOUNTER 2021-10-30 01:25 | Day surgery (SDC) | payer MEDICARE, OTHER | END 2021-10-30 09:10 | disposition home or self-care (01) | LOC: ATC 01:25 | DX: N39.0 Urinary tract infection, site not specified (principal); B96.5 Pseudomonas (aeruginosa) (mallei) (pseudomallei) as the cause of diseases classified elsewhere | CPT/HCPCS: 96365; J3260 ==

== ENCOUNTER → 2021-11-03 | Outpatient (CLI) | payer MEDICARE, OTHER ==
[2021-11-03 09:54] LABS: Appearance, Urine Hazy (Clear); Bilirubin, Urine Neg (Neg); Blood, Urine 3+ (Neg); Color, Urine Yellow (P-Yellow); Glucose Qualitative, Urine Neg (Neg); Ketones, Urine Neg (Neg); Leukocyte Esterase, Urine 3+ (Neg); Nitrite, Urine Neg (Neg); Protein, Urine 2+ (Neg); Specific Gravity, Urine 1.015 (1.003-1.022); Urobilinogen, Urine NORM (Normal)
[2021-11-03 10:16] LABS: Bacteria Many /hpf; Squamous Epithelial Cells Rare /hpf (Few); White Blood Cells, Urine TNTC /hpf (0-5)
== END | disposition home or self-care (01) ==
LOC: LAB SHORT 09:34 → LAB 09:34
PROVIDERS: Physician Assistant
DX: Z09 Encounter for follow-up examination after completed treatment for conditions other than malignant neoplasm (principal); Z87.440 Personal history of urinary (tract) infections
CPT/HCPCS: 81001

== ENCOUNTER 2021-11-10 03:51 | Day surgery (SDC) | payer MEDICARE, OTHER ==
[2021-11-10] MEDS ORDERED: CEPH250A PO (09:17)
[2021-11-10 09:49] LABS: Source, Urine Catheter
[2021-11-10 09:55] LABS: Appearance, Urine Cloudy (Clear); Bilirubin, Urine Neg (Neg); Blood, Urine 3+ (Neg); Color, Urine Yellow (P-Yellow); Glucose Qualitative, Urine Neg (Neg); Ketones, Urine Neg (Neg); Leukocyte Esterase, Urine 3+ (Neg); Nitrite, Urine Pos (Neg); Protein, Urine 3+ (Neg); Urobilinogen, Urine NORM (Normal)
[2021-11-10 10:17] LABS: White Blood Cells, Urine 50-100 /hpf (0-5)
[2021-11-10 10:19] LABS: Bacteria Mod /hpf; Squamous Epithelial Cells Rare /hpf (Few)
== END 2021-11-10 09:24 | disposition home or self-care (01) ==
LOC: ATC 03:51
PROVIDERS: Physician Assistant
DX: Z45.2 Encounter for adjustment and management of vascular access device (principal); E03.9 Hypothyroidism, unspecified; N18.31 Chronic kidney disease, stage 3a; Z85.51 Personal history of malignant neoplasm of bladder; Z88.8 Allergy status to other drugs, medicaments and biological substances
CPT/HCPCS: 81001; 87077; 87086; 87186; 99212

== ENCOUNTER 2021-11-13 08:32 | Emergency (ER) | payer MEDICARE, OTHER ==
[~2021-11-13] VITALS: Ht 157.5 cm; Wt 54.4 kg
[2021-11-13] MEDS ORDERED: Cipro250 MG PO (08:46)
[2021-11-13 09:37] LABS: BASOPHILS ABSOLUTE AUTO 0.03 K/mm3 (0.00-0.23); BASOPHILS PERCENT AUTO 0 % (0-2); EOSINOPHILS PERCENT AUTO 3 % (0-6); Hematocrit 40.5 % (37.0-53.0); Hemoglobin 13.1 g/dL (13.5-17.5); IMMATURE GRAN ABSOLUTE AUTO 0.03 K/mm3 (0.00-0.10); IMMATURE GRAN PERCENT AUTO 0 % (0-1); LYMPHOCYTES ABSOLUTE AUTO 0.85 K/mm3 (0.84-5.20); LYMPHOCYTES PERCENT AUTO 13 % (21-46); MONOCYTES ABSOLUTE AUTO 0.43 K/mm3 (0.16-1.47); MONOCYTES PERCENT AUTO 6 % (4-13); Mean Corpuscular HGB Conc 32.3 g/dL (31.5-36.5); Mean Corpuscular Volume 96 fL (80-100); NEUTROPHILS ABSOLUTE AUTO 5.28 K/mm3 (1.96-9.15); NEUTROPHILS PERCENT AUTO 78 % (41-73); Platelet Count 185 K/mm3 (150-400); RDW Coefficient Variation 13.7 % (11.7-14.2); RDW Standard Deviation 49.1 fL (35.1-46.3); Red Blood Cell Count 4.23 M/mm3 (4.30-5.90); White Blood Cell Count 6.82 K/mm3 (4.00-11.30)
[2021-11-13 10:10] LABS: Influenza A, PCR NEGATIVE (NEGATIVE); Influenza B, PCR NEGATIVE (NEGATIVE); Resp Syncytial Virus, PCR NEGATIVE (NEGATIVE); SARS-Cov-2 (COVID-19) PCR, MMC NEGATIVE (NEGATIVE)
[2021-11-13 10:11] LABS: Albumin, Blood 2.9 g/dL (3.4-5.0); Albumin/Globulin Ratio 0.8 (0.8-1.8); Bilirubin, Total 0.5 mg/dL (0.1-1.0); Bun/Creatinine Ratio 19.4 (12.0-20.0); Calcium, Blood 8.9 mg/dL (8.5-10.1); Creatinine, Blood 1.24 mg/dL (0.60-1.20); Globulin, Blood 3.8 g/dL (2.2-4.0); Potassium, Blood 4.1 mmol/L (3.5-5.5); Total Protein, Blood 6.7 g/dL (6.4-8.2)
--- NOTE | 2021-11-13 15:15 | NUR ---
PT TO RECOVERY ROOM POST PROCEDURE. AWAKE AND ALERT, SON AT BEDSIDE. VSS. BILATERAL NEPH TUBES IN PLACE, DRAINING WELL.
--- NOTE | 2021-11-13 16:13 | NUR ---
IV DC'D, CATH INTACT. PT AND SON GIVEN DC INSTRUCTIONS, VERBALIZED UNDERSTANDING. PT DENIES PAIN OR DISCOMFORT. OUT TO CAR VIA WHEELCHAIR IN NO DISTRESS.
== END 2021-11-13 14:19 | disposition other institution (70) ==
LOC: ER 08:32
PROVIDERS: Physician Assistant
DX: T83.022A Displacement of nephrostomy catheter, initial encounter (principal); Z20.822 Contact with and (suspected) exposure to COVID-19; Z88.8 Allergy status to other drugs, medicaments and biological substances; Z79.899 Other long term (current) drug therapy; Z79.82 Long term (current) use of aspirin; E03.9 Hypothyroidism, unspecified
CPT/HCPCS: 0241U; 36415; 50430; 50431; 50432; 50435; 80053; 85025; 99152; 99153; 99284-25; C1729; C1769; C1887; J2250; J3010; J7030; J7040; Q9967

== ENCOUNTER 2021-11-24 04:30 | Day surgery (SDC) | payer MEDICARE, OTHER ==
[~2021-11-24 04:30] MED LIST changes: +Cipro250 MG PO
[2021-11-24] MEDS ORDERED: CEPH250A PO (08:32)
== END 2021-11-24 08:00 | disposition home or self-care (01) ==
LOC: ATC 04:30
DX: Z43.6 Encounter for attention to other artificial openings of urinary tract (principal)
CPT/HCPCS: 99211

== ENCOUNTER 2021-12-01 02:46 | Day surgery (SDC) | payer MEDICARE, OTHER ==
[2021-12-01 09:56] LABS: Source, Urine Nephrostomy
[2021-12-01 10:29] LABS: Appearance, Urine Hazy (Clear); Bilirubin, Urine Neg (Neg); Blood, Urine 4+ (Neg); Color, Urine Yellow (P-Yellow); Glucose Qualitative, Urine Neg (Neg); Ketones, Urine Neg (Neg); Leukocyte Esterase, Urine 3+ (Neg); Nitrite, Urine Pos (Neg); Protein, Urine 3+ (Neg); Urobilinogen, Urine NORM (Normal)
[2021-12-01 11:34] LABS: Red Blood Cells, Urine 25-50 /hpf (0-2)
[2021-12-01 11:35] LABS: Amorphous Mod (0-Heavy); Bacteria Many /hpf; Granular Casts 0-2 /lpf (0); Hyaline Casts 0-2 /lpf (0-2); Squamous Epithelial Cells Few /hpf (Few)
== END 2021-12-01 09:42 | disposition home or self-care (01) ==
LOC: ATC 02:46
PROVIDERS: Physician Assistant
DX: Z43.6 Encounter for attention to other artificial openings of urinary tract (principal)
CPT/HCPCS: 81001; 87077; 87086; 87186; 99211

== ENCOUNTER 2021-12-08 03:34 | Day surgery (SDC) | payer MEDICARE, OTHER | END 2021-12-08 07:50 | disposition home or self-care (01) | LOC: ATC 03:34 | DX: Z43.6 Encounter for attention to other artificial openings of urinary tract (principal); Z87.440 Personal history of urinary (tract) infections | CPT/HCPCS: 99211 ==

== ENCOUNTER 2021-12-15 02:41 | Day surgery (SDC) | payer MEDICARE, OTHER | END 2021-12-15 07:58 | disposition home or self-care (01) | LOC: ATC 02:41 | DX: Z43.6 Encounter for attention to other artificial openings of urinary tract (principal); Z87.440 Personal history of urinary (tract) infections | CPT/HCPCS: 99211 ==

== ENCOUNTER 2021-12-19 09:53 | Day surgery (SDC) | payer MEDICARE, OTHER | END 2021-12-19 10:10 | disposition home or self-care (01) | LOC: ATC 09:53 | DX: Z43.6 Encounter for attention to other artificial openings of urinary tract (principal); Z87.440 Personal history of urinary (tract) infections | CPT/HCPCS: 99211 ==

== ENCOUNTER 2021-12-29 01:49 | Day surgery (SDC) | payer MEDICARE, OTHER | END 2021-12-29 08:03 | disposition home or self-care (01) | LOC: ATC 01:49 | DX: Z43.6 Encounter for attention to other artificial openings of urinary tract (principal) | CPT/HCPCS: 99211 ==

== ENCOUNTER 2022-01-05 01:53 | Day surgery (SDC) | payer MEDICARE, OTHER | END 2022-01-05 08:10 | disposition home or self-care (01) | LOC: ATC 01:53 | DX: Z43.6 Encounter for attention to other artificial openings of urinary tract (principal); Z87.440 Personal history of urinary (tract) infections | CPT/HCPCS: 99211 ==

== ENCOUNTER 2022-01-12 03:25 | Day surgery (SDC) | payer MEDICARE, OTHER | END 2022-01-12 07:50 | disposition home or self-care (01) | LOC: ATC 03:25 | DX: Z43.6 Encounter for attention to other artificial openings of urinary tract (principal); Z93.6 Other artificial openings of urinary tract status; Z87.440 Personal history of urinary (tract) infections | CPT/HCPCS: 99212 ==

== ENCOUNTER 2022-01-19 06:07 | Day surgery (SDC) | payer MEDICARE, OTHER ==
--- NOTE | 2022-01-19 08:02 | NUR ---
PTS SON STATES THAT HIS FATHER HAS BEEN COMPLAING ABOUT SOME PAIN HE HAS IN THE L SIDE. HE SAYS THAT IT FEELS LIKE THE DRAIN IS PULLING. WHEN I APPLIED DRESSINGS ON BOTH SIDES I LIFTED UP ON THE DRAINS MUCH I COULD AND NOT CAUSE THE DRAIN TO PINCH OFF. ALSON THE DRAIN ON THE L HAS COME PURULENT DRAINAGE COMING OUT WHERE THE LINE GOES INTO HIS FLANK. PT TOLERATED PROCEDURE WELL.
== END 2022-01-19 07:50 | disposition home or self-care (01) ==
LOC: ATC 06:07
DX: Z45.2 Encounter for adjustment and management of vascular access device (principal); Z93.6 Other artificial openings of urinary tract status; Z87.440 Personal history of urinary (tract) infections
CPT/HCPCS: 99211

== ENCOUNTER 2022-01-26 02:14 | Day surgery (SDC) | payer MEDICARE, OTHER ==
[2022-02-14] MEDS ORDERED: CEFD300 PO (10:12)
== END 2022-01-26 07:47 | disposition home or self-care (01) ==
LOC: ATC 02:14
DX: Z43.6 Encounter for attention to other artificial openings of urinary tract (principal)
CPT/HCPCS: 99211

== ENCOUNTER 2022-02-02 01:57 | Day surgery (SDC) | payer MEDICARE, OTHER | END 2022-02-02 07:44 | disposition home or self-care (01) | LOC: ATC 01:57 | DX: Z43.6 Encounter for attention to other artificial openings of urinary tract (principal); N18.31 Chronic kidney disease, stage 3a | CPT/HCPCS: 99211 ==

== ENCOUNTER 2022-02-09 01:37 | Day surgery (SDC) | payer MEDICARE, OTHER | END 2022-02-09 07:48 | disposition home or self-care (01) | LOC: ATC 01:37 | DX: Z43.6 Encounter for attention to other artificial openings of urinary tract (principal); N18.31 Chronic kidney disease, stage 3a; Z87.440 Personal history of urinary (tract) infections | CPT/HCPCS: 99211 ==

== ENCOUNTER 2022-02-16 01:54 | Day surgery (SDC) | payer MEDICARE, OTHER | END 2022-02-16 07:56 | disposition home or self-care (01) | LOC: ATC 01:54 | DX: Z43.6 Encounter for attention to other artificial openings of urinary tract (principal); N18.31 Chronic kidney disease, stage 3a; Z93.6 Other artificial openings of urinary tract status; Z87.440 Personal history of urinary (tract) infections | CPT/HCPCS: 99211 ==

== ENCOUNTER 2022-02-23 07:35 | Day surgery (SDC) | payer MEDICARE, OTHER | END 2022-02-23 07:48 | disposition home or self-care (01) | LOC: ATC 07:35 | DX: Z43.6 Encounter for attention to other artificial openings of urinary tract (principal); M83.1 Senile osteomalacia | CPT/HCPCS: 99211 ==

== ENCOUNTER 2022-03-02 01:36 | Day surgery (SDC) | payer MEDICARE, OTHER | END 2022-03-02 08:07 | disposition home or self-care (01) | LOC: ATC 01:36 | DX: Z43.6 Encounter for attention to other artificial openings of urinary tract (principal); N18.31 Chronic kidney disease, stage 3a; Z87.440 Personal history of urinary (tract) infections | CPT/HCPCS: 99211 ==

== ENCOUNTER 2022-03-09 01:27 | Day surgery (SDC) | payer MEDICARE, OTHER | END 2022-03-09 07:56 | disposition home or self-care (01) | LOC: ATC 01:27 | DX: Z43.6 Encounter for attention to other artificial openings of urinary tract (principal); N18.31 Chronic kidney disease, stage 3a | CPT/HCPCS: 99211 ==

== ENCOUNTER 2022-03-16 01:17 | Day surgery (SDC) | payer MEDICARE, OTHER | END 2022-03-16 08:15 | disposition home or self-care (01) | LOC: ATC 01:17 | DX: Z43.6 Encounter for attention to other artificial openings of urinary tract (principal); M83.1 Senile osteomalacia | CPT/HCPCS: 99211 ==

== ENCOUNTER → 2022-03-19 | Outpatient (CLI) | payer MEDICARE, OTHER ==
[2022-03-19 16:44] LABS: Adenovirus F 40/41 Not Detected (NOT DETECT); Astrovirus Not Detected (NOT DETECT); Campylobacter Sp Not Detected (NOT DETECT); Cryptosporidium Not Detected (NOT DETECT); Cyclospora Cayetanensis Not Detected (NOT DETECT); E. Coli O157 Not Detected (NOT DETECT); Entamoeba Histolytica Not Detected (NOT DETECT); Enteroaggregative E. coli-EAEC Not Detected (NOT DETECT); Enteropathogenic E. coli-EPEC Not Detected (NOT DETECT); Enterotoxigenic E. coli-ETEC Not Detected (NOT DETECT); Giardia Lamblia Not Detected (NOT DETECT); Norovirus GI/GII Not Detected (NOT DETECT); Plesiomonas Shigelloides Not Detected (NOT DETECT); Rotavirus A Not Detected (NOT DETECT); Salmonella Sp Not Detected (NOT DETECT); Sapovirus Not Detected (NOT DETECT); Shiga Toxin-prod E. coli-STEC Not Detected (NOT DETECT); Shigella/Enteroin E. coli-EIEC Not Detected (NOT DETECT); Vibrio Cholerae Not Detected (NOT DETECT); Vibrio Sp Not Detected (NOT DETECT); Yersinia Enterocolitica Not Detected (NOT DETECT)
== END | disposition home or self-care (01) ==
LOC: LAB SHORT 14:49 → LAB FUT 03-18 09:55
PROVIDERS: Physician Assistant
DX: E11.22 Type 2 diabetes mellitus with diabetic chronic kidney disease (principal); N18.31 Chronic kidney disease, stage 3a; D63.1 Anemia in chronic kidney disease; R19.7 Diarrhea, unspecified; Z86.39 Personal history of other endocrine, nutritional and metabolic disease
CPT/HCPCS: 87507

== ENCOUNTER 2022-03-21 08:01 | Day surgery (SDC) | payer MEDICARE, OTHER | END 2022-03-21 08:02 | disposition home or self-care (01) | LOC: ATC 08:01 | DX: M83.1 Senile osteomalacia (principal); Z93.6 Other artificial openings of urinary tract status | CPT/HCPCS: 99211 ==

== ENCOUNTER 2022-03-26 00:57 | Day surgery (SDC) | payer MEDICARE, OTHER | END 2022-03-26 08:00 | disposition home or self-care (01) | LOC: ATC 00:57 | DX: N18.31 Chronic kidney disease, stage 3a (principal); Z93.6 Other artificial openings of urinary tract status | CPT/HCPCS: 99211 ==

== ENCOUNTER 2022-04-07 07:38 | Day surgery (SDC) | payer MEDICARE, OTHER ==
--- NOTE | 2022-04-07 09:16 | NUR ---
PT WITH BILATERAL NEPHROTOMY DRESSING CHANGE. BOTH DRESSING WERE CLEANED WITH CHLORAPRE AND LET DRY. SKIP PREP APPLIED AND LET DRY. L DRESSING WITH NO CHANGES, SITE CLEAN AND DRY AND DRY WITH YELLOW URINE OUT. STAY FIT DRESSING PLACED ON PT WITH 2 CLEAR TEGADERMS OVER DRESSINGS. R SIDED NEPHROSTOMY DRESSING WITH PURULENT DRAINAGE AROUND SITE. DRAINAGE DOES NOT COME OUT FROM DRESSING. SKIN CLEANSED WITH CHLORAPREP AND LET DRY. SKIN PREP APPLIED TO DRESSING. STAY FIT DRESSING APPLIED WITH NO PROBLEMS. PT WAS DISCHARGED IN CARE OF SON.
== END 2022-04-07 08:05 | disposition home or self-care (01) ==
LOC: ATC 07:38
DX: Z43.6 Encounter for attention to other artificial openings of urinary tract (principal); N18.31 Chronic kidney disease, stage 3a
CPT/HCPCS: 99212

== ENCOUNTER 2022-04-14 04:36 | Day surgery (SDC) | payer MEDICARE, OTHER ==
--- NOTE | 2022-04-14 10:15 | NUR ---
L NEPHROSTMY DRESSING CHANGED. PTS SON STATES WHEN HIS DAD GOT UP ON SAT. THE LINE WAS LONGER THAN ORIGINALLY PUT IN. URINE IS BLOODY WITH NO CLOTS. PT'S SON STATES IT HAS DRAINED ALL WEEKEND WITH BLOOD IN IT. DRESSING WITH MOD AMOUNT OF GARZON PURULENT FLUID ON DRESSING. PT'S SON TO CALL DR RESPONSIBLE FOR NEPHROSTOMY DRAINS. PT WITHOUT C/O PAIN.
== END 2022-04-14 07:58 | disposition home or self-care (01) ==
LOC: ATC 04:36
DX: Z43.6 Encounter for attention to other artificial openings of urinary tract (principal); N18.31 Chronic kidney disease, stage 3a
CPT/HCPCS: 99212

== ENCOUNTER 2022-04-20 01:28 | Day surgery (SDC) | payer MEDICARE, OTHER ==
--- NOTE | 2022-04-20 08:07 | NUR ---
R DRESSING WITH PURULENT PINK DRAINAGE LEAKING OUT OF BOTTOM OF DRESSING. PT WITH INTERMITTENT BLOOD IN DRAINAGE BAG. SITE CLEANED WITH CHLORAPREP AND LET DRY. R INSERTION SITE TO BACK IS VERY RED. SKIN PREP APPLIED TO SKIN AND STAY-FIT DRESSING AND TEGADERMS. PT'S SON IS AWARE THAT IF THE LINE BECOMES BLOCKED OR WITH INCREASED BLOOD IN URINE TO CALL DR. RAYO.
== END 2022-04-20 07:50 | disposition home or self-care (01) ==
LOC: ATC 01:28
DX: Z43.6 Encounter for attention to other artificial openings of urinary tract (principal); M83.1 Senile osteomalacia
CPT/HCPCS: 99212

== ENCOUNTER 2022-04-27 00:53 | Day surgery (SDC) | payer MEDICARE, OTHER | END 2022-04-27 07:46 | disposition home or self-care (01) | LOC: ATC 00:53 | DX: N18.31 Chronic kidney disease, stage 3a (principal); Z93.6 Other artificial openings of urinary tract status | CPT/HCPCS: 99211 ==

== ENCOUNTER 2022-05-04 00:56 | Day surgery (SDC) | payer MEDICARE, OTHER ==
--- NOTE | 2022-05-04 08:06 | NUR ---
BILATER NEPHROSTOMY DRESSING DONE. R DRAIN IS INTERMITTENLY WITH RED DRAINAGE. RED DRAINAGE COMMING OUT OF R DRESSING AND OUT BOTTOM OF STAY-FIT DRESSING. SMALL AMOUT OF RED RAISED AREA ON BOTTOM R OF DRESSING. SKIN IS CLEAR ON L DRESSING. BOTH SITES WERE CLEANED WITH CHLORAPREP AND LET DRY. SKIN PREP APPLIED ON SKIN ON BOTH SIDES. BILATERAL STAY-FIT DRESSINGS APPLIED WITHOUT PROBLEMS. [id number] OVER RED AREA ON R DRAIN. TEGADERM X2 ON BOTH SIDES.
== END 2022-05-04 07:55 | disposition home or self-care (01) ==
LOC: ATC 00:56
DX: Z43.6 Encounter for attention to other artificial openings of urinary tract (principal); N18.31 Chronic kidney disease, stage 3a; F03.90 Unspecified dementia, unspecified severity, without behavioral disturbance, psychotic disturbance, mood disturbance, and anxiety; Z85.51 Personal history of malignant neoplasm of bladder; Z79.899 Other long term (current) drug therapy
CPT/HCPCS: 99212

== ENCOUNTER 2022-05-11 02:19 | Day surgery (SDC) | payer MEDICARE, OTHER ==
--- NOTE | 2022-05-11 08:00 | NUR ---
NEPHROSTOMY DRESSING CHANGE DONE TO BILATERAL NEPHROSTOMY DRESSING. L SIDE DRESSING TAKEN OFF WITH NO PROBLEMS. URING IS CLOUDY YELLOW WHICH IS NORMAL FOR PT. SKIN CLEANED WITH CHLORAPREP AND LET DRY. SKIN PREP APPLIED AND ALLOWED TO DRY. STAY FIT DRESSING APPLIED WITHOUT PROBLEMS. SKIN CLEAR OF REDNESS OR DRAINAGE. TWO TEGADERMS APPLIED OVER ENTIRE DRESSING. R SIDED NEPHROSTOMY DRESSING TAKEN OFF. SITE HAS DRAINAGE FROM R SIDE OF DRESSING AND BELOW THE DRESSING. DRAINAGE IS GARZON PURULENT IN COLOR. FOUL ODOR NOTED. DRAINAGE CONTINUES TO BE BLOOD AND CLOUDY AT TIMES. SKIN CLEANED WITH CHLORAPREP AND LET DRY. SKIN PREP APPLIDE AND LET DRY. NEW STAY FIT DRESSING APPLIED TO DRAIN SITE. APPLIED 2 2X2 BARB TO KEEP THE DRAINAGE CONTAINED. SON TO CALL CONCERNING DRAINAGE. 2 TEGADERMS APPLIED OVER DRESSING.
== END 2022-05-11 08:00 | disposition home or self-care (01) ==
LOC: ATC 02:19
DX: N18.31 Chronic kidney disease, stage 3a (principal); Z93.6 Other artificial openings of urinary tract status; F03.90 Unspecified dementia, unspecified severity, without behavioral disturbance, psychotic disturbance, mood disturbance, and anxiety; E03.9 Hypothyroidism, unspecified; Z87.440 Personal history of urinary (tract) infections; Z85.51 Personal history of malignant neoplasm of bladder; Z79.82 Long term (current) use of aspirin; Z79.899 Other long term (current) drug therapy
CPT/HCPCS: 99212

== ENCOUNTER 2022-05-19 00:56 | Day surgery (SDC) | payer MEDICARE, OTHER ==
--- NOTE | 2022-05-19 08:05 | NUR ---
PT'S SON STATES HE HAS TALKED WITH 'S OFFICE REGARDING DRAINAGE AROUND NEPHROSTOMY TUBE ON RIGHT SIDE. MD NOT CONCNERNED, AND PT'S SON CALLING MD OFFICE TODAY TO SCHEDULE TUBE CHANGE PT IS OVERDUE. BOTH NEPHROSTOMY SITES CLEANED WITH CHLORHEXIDINE. NEW STAYFIX DRESSINGS APPLIED. STERILE 2X2 GAUZE PLACED OVER STAY FIX DRESSING ON RIGHT SIDE AND BOTH DRESSINS COVERED WITH 2 TEGADERM DRESSINGS. PT TOLERATED DRESSING CHANGE WELL.
== END 2022-05-19 07:57 | disposition home or self-care (01) ==
LOC: ATC 00:56
DX: Z43.6 Encounter for attention to other artificial openings of urinary tract (principal); N18.31 Chronic kidney disease, stage 3a; F03.90 Unspecified dementia, unspecified severity, without behavioral disturbance, psychotic disturbance, mood disturbance, and anxiety; E78.00 Pure hypercholesterolemia, unspecified; E03.9 Hypothyroidism, unspecified; Z85.51 Personal history of malignant neoplasm of bladder; Z88.8 Allergy status to other drugs, medicaments and biological substances
CPT/HCPCS: 99211

== ENCOUNTER 2022-05-25 00:25 | Day surgery (SDC) | payer MEDICARE, OTHER ==
--- NOTE | 2022-05-25 08:10 | NUR ---
PT AMBULATED TO ROOM WITH SON. DRESSING'S X2 TAKEN OFF WITHOUT PROBLEMS. SKIN ON BOTH FLANKS CLEANED WITH CHLORAPREP AND LET DRY. SKIN PREP APPLIED. R DRESSING WITH BROWN CLOUDY DRAINAGE THROUGH DRESSING. L DRESSING DRY. URINE IS CLEAR YELLOW ON BOTH SIDES. BOTH DRESSING CHANGED WITH STAY-FIT. R SIDE WITH 2X2 UNDER TO CONTAIN THE DRAINAGE. TEGADERM X2 OVER EACH DRESSING. PT TOLERATED PROCEDURE WELL. PT TO HAVE BACK SURGERY ON WEDNESDAY.
== END 2022-05-25 07:50 | disposition home or self-care (01) ==
LOC: ATC 00:25
DX: Z43.6 Encounter for attention to other artificial openings of urinary tract (principal); M83.1 Senile osteomalacia
CPT/HCPCS: 99212

== ENCOUNTER 2022-06-08 05:55 | Day surgery (SDC) | payer MEDICARE, OTHER ==
--- NOTE | 2022-06-08 08:11 | NUR ---
R NEPHROSTOMY DRESSING CNAGED. SMALL AMOUNT OF PURRULENT DRAINAGE ON GAUZE PAD. PT HAS A SMALL PIECE OF TISSUE THE SIZE OF A PENCIL ERASER. THE SPOT OF IS VERY RED AND BLEEDS IF YOU RUB IT. SKIN PREP ON SKIN BEFORE DRESSING. NEW STAY-FIT DRESSING APPLIED WITH A STERILE 4X4 OVER THE DRESSING AND 2 TAEGADERM DRESSING OVER ALL.
[2022-06-08] MEDS ORDERED: HYDROCODONE-AC1 EA18 PO (08:21)
[2022-06-08] MEDS ORDERED: Methocarbamol500 MG PO (08:21)
== END 2022-06-08 07:57 | disposition home or self-care (01) ==
LOC: ATC 05:55
DX: Z43.6 Encounter for attention to other artificial openings of urinary tract (principal); N18.31 Chronic kidney disease, stage 3a; E03.9 Hypothyroidism, unspecified; Z88.8 Allergy status to other drugs, medicaments and biological substances
CPT/HCPCS: 99212

== ENCOUNTER 2022-06-15 01:40 | Day surgery (SDC) | payer MEDICARE, OTHER ==
[~2022-06-15 01:40] MED LIST changes: +HYDROCODONE-AC1 EA18 PO; +Methocarbamol500 MG PO
--- NOTE | 2022-06-15 12:03 | NUR ---
NEPHROSTOMY TUBE DRESSING CHANGES TODAY. OLD DRESSINGS REMOVED. SKIN AND TUBES CLEANSED WITH CHLORAPREP, AIR DRIED, STAY FIX DRESSING APPLIED, TEGADERM PLACED OVER LEFT NEHPROSTOMY TUBE. STERILE 4X4 COVERED WITH TEGADERM APPLIED TO RIGHT NEPHROSTOMY DUE TO YELLOW DRAINAGE. DR AWARE OF DRAINAGE AND SON STATES THAT TUBE HAS DRAINED FOR OVER A YEAR.
== END 2022-06-15 08:02 | disposition home or self-care (01) ==
LOC: ATC 01:40
DX: Z43.6 Encounter for attention to other artificial openings of urinary tract (principal); N18.31 Chronic kidney disease, stage 3a; E78.00 Pure hypercholesterolemia, unspecified; E03.9 Hypothyroidism, unspecified; Z88.8 Allergy status to other drugs, medicaments and biological substances; N48.89 Other specified disorders of penis
CPT/HCPCS: 99212

== ENCOUNTER 2022-06-22 02:04 | Day surgery (SDC) | payer MEDICARE, OTHER ==
[2022-06-22] MEDS ORDERED: ACET500 PO (09:14)
== END 2022-06-22 07:47 | disposition home or self-care (01) ==
LOC: ATC 02:04
DX: N18.31 Chronic kidney disease, stage 3a (principal); Z93.6 Other artificial openings of urinary tract status; Z88.8 Allergy status to other drugs, medicaments and biological substances; Z88.6 Allergy status to analgesic agent
CPT/HCPCS: 99211

== ENCOUNTER 2022-06-29 03:57 | Day surgery (SDC) | payer MEDICARE, OTHER ==
[~2022-06-29 03:57] MED LIST changes: +ACET500 PO
[2022-06-29] MEDS ORDERED: Norco 5-325 Ta1 EACH PO (13:46)
== END 2022-06-29 23:15 | disposition home or self-care (01) ==
LOC: ATC 03:57
DX: Z43.6 Encounter for attention to other artificial openings of urinary tract (principal); N18.31 Chronic kidney disease, stage 3a; F03.90 Unspecified dementia, unspecified severity, without behavioral disturbance, psychotic disturbance, mood disturbance, and anxiety; E78.00 Pure hypercholesterolemia, unspecified; E03.9 Hypothyroidism, unspecified; Z85.51 Personal history of malignant neoplasm of bladder; Z88.8 Allergy status to other drugs, medicaments and biological substances

== ENCOUNTER 2022-06-30 06:17 | Day surgery (SDC) | payer MEDICARE, OTHER ==
[~2022-06-30] VITALS: Ht 162.6 cm; Wt 61.0 kg
[~2022-06-30 06:17] MED LIST changes: +Norco 5-325 Ta1 EACH PO
--- NOTE | 2022-06-30 10:10 | NUR ---
PT DRESSED, SALINE LOCK REMOVED WITH CATHETER INTACT. DISCHARGE REVIEWED WITH SON AND PT, BOTH VERBALIZE UNDERSTANDING OF INSTRUCTIONS. PT TO PRIVATE VEHICLE PER W/C.
== END 2022-06-30 10:15 | disposition home or self-care (01) ==
LOC: MHTC 06:17
DX: Z43.6 Encounter for attention to other artificial openings of urinary tract (principal); E03.9 Hypothyroidism, unspecified; F03.90 Unspecified dementia, unspecified severity, without behavioral disturbance, psychotic disturbance, mood disturbance, and anxiety; Z88.6 Allergy status to analgesic agent; N40.0 Benign prostatic hyperplasia without lower urinary tract symptoms
CPT/HCPCS: 50435; 99152; C1729; C1769; J2250; J3010; J7030; Q9967

== ENCOUNTER 2022-07-13 01:34 | Day surgery (SDC) | payer MEDICARE, OTHER ==
--- NOTE | 2022-07-13 08:03 | NUR ---
R NEPHROSTOMY DRESSING CHANGE COMPLETED. PT WITH MODERATE AMOUNT OF PURULENT YELLOW DRAINAGE NOTED. PTS DRESSING REMOVED AND CLEANED WITH CHLORAPREP AND LET DRY. SKIN PREP APPLIED AND LET DRY. NEW STAY-FIT DRESSING PLACED ON L NEPHROSTOMY SITE. SON ASKS THAT WE DO NOT APPLY TEGADERM AT THIS TIME. L NEPHROSTOMY DRESSING CHANGE COMPLETED. NO DRAINAGE NOTED ON THIS SIDE. DRESSING REMOVED AND SITE CLEANED WITH CHLORAPREP AND KET DRY. SKIN PREP APPLIED AND LET DRY. NEW STAY-FIT DRESSING PLACED. PT STATED AFTER REMOVING DRESSING ON L SIDE THAT HE HAD SOME PAIN INTERNALY. WHEN ASKED ABOUT PAIN PRIOR TO LEAVING HE STATED THE PAIN WAS GONE.
== END 2022-07-13 07:52 | disposition home or self-care (01) ==
LOC: ATC 01:34
DX: R82.81 Pyuria (principal); F03.90 Unspecified dementia, unspecified severity, without behavioral disturbance, psychotic disturbance, mood disturbance, and anxiety; N18.31 Chronic kidney disease, stage 3a; Z85.51 Personal history of malignant neoplasm of bladder; Z93.6 Other artificial openings of urinary tract status; Z88.8 Allergy status to other drugs, medicaments and biological substances; Z79.82 Long term (current) use of aspirin; Z79.899 Other long term (current) drug therapy
CPT/HCPCS: 99211

== ENCOUNTER 2022-07-21 07:37 | Day surgery (SDC) | payer MEDICARE, OTHER ==
--- NOTE | 2022-07-21 08:02 | NUR ---
BILATERAL NEPHROSTOMY TUBE DRESSING CHANGE TODAY. OLD DRESSINGS REMOVED. AREAS CLEANSED WITH CHLORHEXADINE. ONCE DRIED SENSI-CARE BARRIER APPLIED. ONCE DRIED STAY FIX DRESSING APPLIED. PT'S SON OPTED FOR NO TEGADERM TO BE APPLIED TODAY OVER THE STAY FIX DRESSING. PT'S SON STATES THAT THE TEGADERM SEEMS TO CREATE MORE DRAINAGE FROM THE RIGHT NEPHROSTOMY TUBE. TEGADERM DRESSINGS GIVEN TO SON AND HE APPLIES PRIOR TO THE PATIENTS SHOWER. TODAY MILKY GARZON DRAINAGE COMING FROM RIGHT NEPHROSTOMY TUBE. PTS SON STATED THAT THERE WAS NO VISIBLE DRAINAGE UNTIL YESTERDAY WHEN HE APPLIED THE TEGADERM PRIOR TO THE PATIENTS SHOWER.
== END 2022-07-21 07:53 | disposition home or self-care (01) ==
LOC: ATC 07:37
DX: R82.81 Pyuria (principal); Z93.6 Other artificial openings of urinary tract status; Z85.51 Personal history of malignant neoplasm of bladder; F03.90 Unspecified dementia, unspecified severity, without behavioral disturbance, psychotic disturbance, mood disturbance, and anxiety; N18.31 Chronic kidney disease, stage 3a; E03.9 Hypothyroidism, unspecified; Z79.82 Long term (current) use of aspirin; Z79.899 Other long term (current) drug therapy
CPT/HCPCS: 99212

== ENCOUNTER 2022-07-27 00:54 | Day surgery (SDC) | payer MEDICARE, OTHER | END 2022-07-27 07:56 | disposition home or self-care (01) | LOC: ATC 00:54 | DX: R19.7 Diarrhea, unspecified (principal); E11.22 Type 2 diabetes mellitus with diabetic chronic kidney disease; N18.31 Chronic kidney disease, stage 3a; D63.1 Anemia in chronic kidney disease; E03.9 Hypothyroidism, unspecified; N62 Hypertrophy of breast | CPT/HCPCS: 99211 ==

== ENCOUNTER 2022-08-03 02:25 | Day surgery (SDC) | payer MEDICARE, OTHER | END 2022-08-03 07:59 | disposition home or self-care (01) | LOC: ATC 02:25 | DX: Z43.6 Encounter for attention to other artificial openings of urinary tract (principal); Z88.8 Allergy status to other drugs, medicaments and biological substances; Z88.6 Allergy status to analgesic agent; E11.22 Type 2 diabetes mellitus with diabetic chronic kidney disease; N18.31 Chronic kidney disease, stage 3a | CPT/HCPCS: 99211 ==

== ENCOUNTER 2022-08-17 00:42 | Day surgery (SDC) | payer MEDICARE, OTHER ==
--- NOTE | 2022-08-17 07:59 | NUR ---
WHEN DOING DRESSING CHANGE TO R SIDE, MODERATE AMOUNT OF FOUL SMELLING AND PURULENT DRAINAGE. 2X2'S APPLIED ON TOP OF STAY-FIT TO ADDRESS THE DRAINAGE. SITE WITH SOME REDNESS AT BOTTOM OF DRESSING AND 2X2'S PUT UNDER LINE. PT WITH LOW BP. PT ADVISED TO DRINK SOME WATER AND TO BE CAREFULL WHEN STANDING UP. PT WAS DISCHARGED TO CARE OF SON.
== END 2022-08-17 07:56 | disposition home or self-care (01) ==
LOC: ATC 00:42
DX: Z43.6 Encounter for attention to other artificial openings of urinary tract (principal); E11.22 Type 2 diabetes mellitus with diabetic chronic kidney disease; N18.31 Chronic kidney disease, stage 3a; E03.9 Hypothyroidism, unspecified; Z87.440 Personal history of urinary (tract) infections; Z88.6 Allergy status to analgesic agent; Z88.8 Allergy status to other drugs, medicaments and biological substances
CPT/HCPCS: 99212

== ENCOUNTER 2022-08-24 01:24 | Day surgery (SDC) | payer MEDICARE, OTHER ==
--- NOTE | 2022-08-24 10:23 | NUR ---
STAY FIT DRESSINGS CHANGE R AND L FOR NEPHROSTOMY DRAINS. R SIDED NEPHROSTOMY DRESSING CHANGED. FOUL SMELLING GARZON DRAINAGE FROM UNDER THE DRESSING. SON THINKS THE URINE NEEDS TO BE TESTED PT'S DEMENTIA HAS BEEN A LITTLE WORSE OVER THE WEEKEND. SKIN CLEANED WITH CHLORAPRE AND LET DRY. SKIN PREP APPLIED AND LET DRY. BOTH DRESSING WERE CHANGED WITH NO PROBLEMS. STERILE 2X2'S APPLIED OVER R DRESSING. TEGADERS X2 OVER EACH DRESSING. SON TO GO TO DR. OFFICE TO ASK FOR A UA ORDER. SON CHANGED NEPHROSTOMY DRAINS BEFORE LEAVING.
== END 2022-08-24 08:06 | disposition home or self-care (01) ==
LOC: ATC 01:24
DX: Z43.6 Encounter for attention to other artificial openings of urinary tract (principal); E11.22 Type 2 diabetes mellitus with diabetic chronic kidney disease; N18.9 Chronic kidney disease, unspecified; E03.9 Hypothyroidism, unspecified; Z87.440 Personal history of urinary (tract) infections; Z88.8 Allergy status to other drugs, medicaments and biological substances; Z88.6 Allergy status to analgesic agent; Z85.51 Personal history of malignant neoplasm of bladder
CPT/HCPCS: 99212

== ENCOUNTER → 2022-08-24 | Outpatient (CLI) | payer MEDICARE, OTHER | END | disposition home or self-care (01) | LOC: LAB 08:35 → LAB SHORT 08:35 | DX: R82.90 Unspecified abnormal findings in urine (principal) | CPT/HCPCS: 87077; 87086; 87186 ==

== ENCOUNTER 2022-08-31 02:57 | Day surgery (SDC) | payer MEDICARE, OTHER | END 2022-08-31 07:49 | disposition home or self-care (01) | LOC: ATC 02:57 | DX: Z43.6 Encounter for attention to other artificial openings of urinary tract (principal); E11.22 Type 2 diabetes mellitus with diabetic chronic kidney disease; N18.31 Chronic kidney disease, stage 3a; E03.9 Hypothyroidism, unspecified; Z87.440 Personal history of urinary (tract) infections; Z88.6 Allergy status to analgesic agent; Z88.8 Allergy status to other drugs, medicaments and biological substances; Z85.51 Personal history of malignant neoplasm of bladder | CPT/HCPCS: 96360; 96361 ==

== ENCOUNTER 2022-09-09 02:29 | Day surgery (SDC) | payer MEDICARE, OTHER | END 2022-09-09 07:58 | disposition home or self-care (01) | LOC: ATC 02:29 | DX: Z43.6 Encounter for attention to other artificial openings of urinary tract (principal); E11.22 Type 2 diabetes mellitus with diabetic chronic kidney disease; N18.31 Chronic kidney disease, stage 3a; E03.9 Hypothyroidism, unspecified; Z87.440 Personal history of urinary (tract) infections; Z88.6 Allergy status to analgesic agent; Z88.8 Allergy status to other drugs, medicaments and biological substances | CPT/HCPCS: 99211 ==

== ENCOUNTER 2022-09-17 03:49 | Day surgery (SDC) | payer MEDICARE, OTHER | END 2022-09-17 08:23 | disposition home or self-care (01) | LOC: ATC 03:49 | DX: Z43.6 Encounter for attention to other artificial openings of urinary tract (principal); E11.22 Type 2 diabetes mellitus with diabetic chronic kidney disease; N18.31 Chronic kidney disease, stage 3a; E03.9 Hypothyroidism, unspecified; Z88.8 Allergy status to other drugs, medicaments and biological substances; Z88.6 Allergy status to analgesic agent; Z87.440 Personal history of urinary (tract) infections | CPT/HCPCS: 99211 ==

== ENCOUNTER 2022-09-22 04:22 | Day surgery (SDC) | payer MEDICARE, OTHER ==
--- NOTE | 2022-09-22 08:14 | NUR ---
DRESSINGS CHANGE ON BOTH R AND L NEPHROSTOMY. SITE'S CLEANED WITH CHLORAPREP AND LET DRY. SKIN PREP APPLIED TO BOTH SIDES AND LET DRY. R SIDED DRESSING WAS LEAKING A MODERATE AMOUNT OF GARZON, FOUL SMELLING DRAINAGE. ON TOP OF THE STAY-FIT DRESSING ON R SIDE, A 4X4 PLACED ON R OUTER EDGE OF DRESSING AND A 2X2 PLACED UNDER LINE TO CONTAIN DRAINAGE. TEGADERM'S PLACED OVER DRESSINGS TO CONTAIN DRESSING. PT TOLERATED THIS PROCEDURE WELL.
== END 2022-09-22 08:00 | disposition home or self-care (01) ==
LOC: ATC 04:22
DX: Z09 Encounter for follow-up examination after completed treatment for conditions other than malignant neoplasm (principal); Z93.6 Other artificial openings of urinary tract status; Z87.440 Personal history of urinary (tract) infections; E11.22 Type 2 diabetes mellitus with diabetic chronic kidney disease; E03.9 Hypothyroidism, unspecified; N18.31 Chronic kidney disease, stage 3a; R19.7 Diarrhea, unspecified
CPT/HCPCS: 99212

== ENCOUNTER 2022-09-30 00:34 | Day surgery (SDC) | payer MEDICARE, OTHER | END 2022-09-30 08:05 | disposition home or self-care (01) | LOC: ATC 00:34 | DX: Z43.6 Encounter for attention to other artificial openings of urinary tract (principal); Z87.440 Personal history of urinary (tract) infections; E11.22 Type 2 diabetes mellitus with diabetic chronic kidney disease; N18.31 Chronic kidney disease, stage 3a; D63.1 Anemia in chronic kidney disease; E03.9 Hypothyroidism, unspecified; N62 Hypertrophy of breast | CPT/HCPCS: 99211 ==

== ENCOUNTER 2022-10-07 00:49 | Day surgery (SDC) | payer MEDICARE, OTHER | END 2022-10-07 07:52 | disposition home or self-care (01) | DX: Z43.6 Encounter for attention to other artificial openings of urinary tract (principal); Z87.440 Personal history of urinary (tract) infections; E11.22 Type 2 diabetes mellitus with diabetic chronic kidney disease; N18.31 Chronic kidney disease, stage 3a; D63.1 Anemia in chronic kidney disease; E03.9 Hypothyroidism, unspecified ==

== ENCOUNTER 2022-10-14 02:11 | Day surgery (SDC) | payer MEDICARE, OTHER ==
--- NOTE | 2022-10-14 13:52 | NUR ---
SPOKE WITH ITA AT Adela ALLEN'S OFFICE. NEW ORDERS REC'D. SPECIMENS WERE SENT TO LAB THIS AM. ORDERS PLACED IN EMR.
== END 2022-10-14 08:25 | disposition home or self-care (01) ==
LOC: ATC 02:11
DX: Z43.6 Encounter for attention to other artificial openings of urinary tract (principal); Z87.440 Personal history of urinary (tract) infections; E11.22 Type 2 diabetes mellitus with diabetic chronic kidney disease; N18.31 Chronic kidney disease, stage 3a; E03.9 Hypothyroidism, unspecified; N62 Hypertrophy of breast; D63.1 Anemia in chronic kidney disease
CPT/HCPCS: 87070; 87075; 87077; 87186; 87205; 99212

== ENCOUNTER 2022-10-19 00:44 | Day surgery (SDC) | payer MEDICARE, OTHER ==
[2022-10-20] MEDS ORDERED: Aspir 8181 MG PO (13:01)
== END 2022-10-19 08:03 | disposition home or self-care (01) ==
LOC: ATC 00:44
DX: Z43.6 Encounter for attention to other artificial openings of urinary tract (principal); Z87.440 Personal history of urinary (tract) infections; N18.31 Chronic kidney disease, stage 3a; E11.22 Type 2 diabetes mellitus with diabetic chronic kidney disease; D63.1 Anemia in chronic kidney disease; E03.9 Hypothyroidism, unspecified; Z88.8 Allergy status to other drugs, medicaments and biological substances
CPT/HCPCS: 99212

== ENCOUNTER 2022-10-21 07:52 | Day surgery (SDC) | payer MEDICARE, OTHER ==
[~2022-10-21] VITALS: Ht 157.5 cm; Wt 62.0 kg
[~2022-10-21 07:52] MED LIST changes: +Aspir 8181 MG PO
--- NOTE | 2022-10-21 10:56 | NUR ---
PT VERBALIZES UNDERSTANDING WRITTEN AND VERBAL INSTRUCTIONS. VSS. NADN. PT DENIES NEEDS OR CONCERNS. PT IV DC'D. CATH INTACT. PT DRESSES SELF WITHOUT DIFF. PT WILL DC TO HOME VIA SON, PAN BY WC
== END 2022-10-21 11:15 | disposition home or self-care (01) ==
LOC: MHTC 07:52
DX: T83.092A Other mechanical complication of nephrostomy catheter, initial encounter (principal); Y73.2 Prosthetic and other implants, materials and accessory gastroenterology and urology devices associated with adverse incidents; Z93.6 Other artificial openings of urinary tract status; E03.9 Hypothyroidism, unspecified; E78.00 Pure hypercholesterolemia, unspecified
CPT/HCPCS: 50435; 87077; 87086; 87186; C1769; J1644; J2250; J3010; J7030; J7040; J7050; Q9967

== ENCOUNTER 2022-10-26 00:29 | Day surgery (SDC) | payer MEDICARE, OTHER | END 2022-10-26 07:56 | disposition home or self-care (01) | LOC: ATC 00:29 | DX: Z43.6 Encounter for attention to other artificial openings of urinary tract (principal); Z87.440 Personal history of urinary (tract) infections; N40.0 Benign prostatic hyperplasia without lower urinary tract symptoms; E78.00 Pure hypercholesterolemia, unspecified; E03.9 Hypothyroidism, unspecified; F03.90 Unspecified dementia, unspecified severity, without behavioral disturbance, psychotic disturbance, mood disturbance, and anxiety | CPT/HCPCS: 99212 ==

== ENCOUNTER 2022-10-29 01:02 | Day surgery (SDC) | payer MEDICARE, OTHER | END 2022-10-29 08:21 | disposition home or self-care (01) | LOC: ATC 01:02 | DX: N10 Acute pyelonephritis (principal); B96.5 Pseudomonas (aeruginosa) (mallei) (pseudomallei) as the cause of diseases classified elsewhere; Z93.6 Other artificial openings of urinary tract status; E78.00 Pure hypercholesterolemia, unspecified; Z88.8 Allergy status to other drugs, medicaments and biological substances | CPT/HCPCS: 96365; J1580 ==

== ENCOUNTER 2022-10-30 01:01 | Day surgery (SDC) | payer MEDICARE, OTHER ==
[~2022-10-30] VITALS: Ht 157.5 cm; Wt 60.8 kg
[2022-10-30 08:34] LABS: Creatinine, Blood 1.35 mg/dL (0.60-1.20); Gentamicin, Trough 1.5 ug/mL (0.0-1.9)
== END 2022-10-30 10:04 | disposition home or self-care (01) ==
LOC: ATC 01:01
PROVIDERS: Physician Assistant
DX: N10 Acute pyelonephritis (principal); B96.5 Pseudomonas (aeruginosa) (mallei) (pseudomallei) as the cause of diseases classified elsewhere
CPT/HCPCS: 80170; 82565; J1580

== ENCOUNTER 2022-11-01 00:07 | Day surgery (SDC) | payer MEDICARE, OTHER ==
[~2022-11-01] VITALS: Ht 157.5 cm; Wt 60.8 kg
[2022-11-01 08:33] LABS: Creatinine, Blood 1.23 mg/dL (0.60-1.20); Gentamicin, Trough 0.5 ug/mL (0.0-1.9); Glomerular Filtration Rate 58 (60-)
== END 2022-11-01 10:05 | disposition home or self-care (01) ==
LOC: ATC 00:07
PROVIDERS: Orthopaedic Surgery Orthopaedic Surgery of the Spine
DX: N10 Acute pyelonephritis (principal); B96.5 Pseudomonas (aeruginosa) (mallei) (pseudomallei) as the cause of diseases classified elsewhere; Z93.6 Other artificial openings of urinary tract status
CPT/HCPCS: 80170; 82565; 96365; J1580

== ENCOUNTER 2022-11-03 01:57 | Day surgery (SDC) | payer MEDICARE, OTHER | END 2022-11-03 08:30 | disposition home or self-care (01) | LOC: ATC 01:57 | DX: N10 Acute pyelonephritis (principal); B96.5 Pseudomonas (aeruginosa) (mallei) (pseudomallei) as the cause of diseases classified elsewhere | CPT/HCPCS: 96365; 99211; J1580 ==

== ENCOUNTER 2022-11-09 02:07 | Day surgery (SDC) | payer MEDICARE, OTHER | END 2022-11-09 08:01 | disposition home or self-care (01) | LOC: ATC 02:07 | DX: Z43.6 Encounter for attention to other artificial openings of urinary tract (principal); Z87.440 Personal history of urinary (tract) infections; N40.0 Benign prostatic hyperplasia without lower urinary tract symptoms; E03.9 Hypothyroidism, unspecified | CPT/HCPCS: 99212 ==

== ENCOUNTER 2022-11-16 07:12 | Day surgery (SDC) | payer MEDICARE, OTHER | END 2022-11-16 07:45 | disposition home or self-care (01) | LOC: ATC 07:12 | DX: Z43.6 Encounter for attention to other artificial openings of urinary tract (principal); Z87.440 Personal history of urinary (tract) infections | CPT/HCPCS: 99211 ==

== ENCOUNTER 2022-11-23 00:46 | Day surgery (SDC) | payer MEDICARE, OTHER | END 2022-11-23 07:54 | disposition home or self-care (01) | LOC: ATC 00:46 | DX: N18.32 Chronic kidney disease, stage 3b (principal); D63.1 Anemia in chronic kidney disease; E78.00 Pure hypercholesterolemia, unspecified; E03.9 Hypothyroidism, unspecified; Z93.6 Other artificial openings of urinary tract status; Z85.51 Personal history of malignant neoplasm of bladder; Z87.440 Personal history of urinary (tract) infections; Z88.8 Allergy status to other drugs, medicaments and biological substances; Z79.82 Long term (current) use of aspirin; Z79.899 Other long term (current) drug therapy | CPT/HCPCS: 99211 ==

== ENCOUNTER 2022-11-30 02:11 | Day surgery (SDC) | payer MEDICARE, OTHER | END 2022-11-30 08:10 | disposition home or self-care (01) | LOC: ATC 02:11 | DX: Z43.6 Encounter for attention to other artificial openings of urinary tract (principal); Z87.440 Personal history of urinary (tract) infections | CPT/HCPCS: 99212 ==

== ENCOUNTER → 2022-12-02 | Outpatient (CLI) | payer MEDICARE, OTHER | END | disposition home or self-care (01) | LOC: LAB SHORT 11:29 → PLD 11:29 | DX: L57.0 Actinic keratosis (principal) | CPT/HCPCS: 88305 ==

== ENCOUNTER 2022-12-07 01:30 | Day surgery (SDC) | payer MEDICARE, OTHER ==
[2022-12-07 08:00] LABS: Source, Urine Nephrostomy
--- NOTE | 2022-12-07 08:00 | NUR ---
UA COLLECTED PER SON'S REQUEST FROM R NEPHROSTOMY TUBE. STANDING ORDER IS CURRENT FOR UA PRN.
[2022-12-07 08:07] LABS: Appearance, Urine Hazy (Clear); Bilirubin, Urine Neg (Neg); Blood, Urine 4+ (Neg); Color, Urine Yellow (P-Yellow); Glucose Qualitative, Urine Neg (Neg); Ketones, Urine Neg (Neg); Leukocyte Esterase, Urine 3+ (Neg); Nitrite, Urine Neg (Neg); Protein, Urine 1+ (Neg); Urobilinogen, Urine NORM (Normal)
[2022-12-07 08:23] LABS: Bacteria Many /hpf; Squamous Epithelial Cells Rare /hpf (Few); White Blood Cells, Urine TNTC /hpf (0-5)
== END 2022-12-07 07:57 | disposition home or self-care (01) ==
LOC: ATC 01:30
PROVIDERS: Physician Assistant
DX: Z93.6 Other artificial openings of urinary tract status (principal); Z87.440 Personal history of urinary (tract) infections
CPT/HCPCS: 81001; 99212

== ENCOUNTER 2022-12-14 00:29 | Day surgery (SDC) | payer MEDICARE, OTHER ==
[2022-12-14] MEDS ORDERED: Cipro500 MG PO (11:25)
== END 2022-12-14 07:57 | disposition home or self-care (01) ==
LOC: ATC 00:29
DX: Z43.6 Encounter for attention to other artificial openings of urinary tract (principal); Z87.440 Personal history of urinary (tract) infections; Z85.51 Personal history of malignant neoplasm of bladder; N40.0 Benign prostatic hyperplasia without lower urinary tract symptoms
CPT/HCPCS: 99211

== ENCOUNTER 2022-12-21 00:12 | Day surgery (SDC) | payer MEDICARE, OTHER ==
--- NOTE | 2022-12-21 11:42 | NUR ---
education regarding low blood pressure symptoms reviewed with patient and his caregiver. both verbalized understanding. pt currently asymptomatic
== END 2022-12-21 07:50 | disposition home or self-care (01) ==
LOC: ATC 00:12
DX: Z93.6 Other artificial openings of urinary tract status (principal); Z87.440 Personal history of urinary (tract) infections
CPT/HCPCS: 99212

== ENCOUNTER 2022-12-28 00:25 | Day surgery (SDC) | payer MEDICARE, OTHER | END 2022-12-28 07:49 | disposition home or self-care (01) | LOC: ATC 00:25 | DX: Z46.6 Encounter for fitting and adjustment of urinary device (principal); Z87.440 Personal history of urinary (tract) infections; Z93.6 Other artificial openings of urinary tract status | CPT/HCPCS: 99211 ==

== ENCOUNTER 2023-01-04 00:36 | Day surgery (SDC) | payer MEDICARE, OTHER | END 2023-01-04 07:56 | disposition home or self-care (01) | LOC: ATC 00:36 | DX: Z43.6 Encounter for attention to other artificial openings of urinary tract (principal); E03.9 Hypothyroidism, unspecified; Z87.440 Personal history of urinary (tract) infections | CPT/HCPCS: 99211 ==

== ENCOUNTER 2023-01-11 01:14 | Day surgery (SDC) | payer MEDICARE, OTHER | END 2023-01-11 07:50 | disposition home or self-care (01) | LOC: ATC 01:14 | DX: Z43.6 Encounter for attention to other artificial openings of urinary tract (principal); Z87.440 Personal history of urinary (tract) infections; E03.9 Hypothyroidism, unspecified; Z88.6 Allergy status to analgesic agent; Z79.899 Other long term (current) drug therapy | CPT/HCPCS: 99211 ==

== ENCOUNTER 2023-01-18 01:09 | Day surgery (SDC) | payer MEDICARE, OTHER | END 2023-01-18 07:50 | disposition home or self-care (01) | LOC: ATC 01:09 | DX: Z43.6 Encounter for attention to other artificial openings of urinary tract (principal); Z87.440 Personal history of urinary (tract) infections; Z79.899 Other long term (current) drug therapy; Z79.82 Long term (current) use of aspirin | CPT/HCPCS: 99211 ==

== ENCOUNTER 2023-01-25 00:41 | Day surgery (SDC) | payer MEDICARE, OTHER ==
--- NOTE | 2023-01-25 08:01 | NUR ---
PT'S BP WAS DOWN. PT HAS WATER IN CAR.
== END 2023-01-25 07:51 | disposition home or self-care (01) ==
LOC: ATC 00:41
DX: Z43.6 Encounter for attention to other artificial openings of urinary tract (principal); Z87.440 Personal history of urinary (tract) infections
CPT/HCPCS: 99211

== ENCOUNTER 2023-02-01 00:38 | Day surgery (SDC) | payer MEDICARE, OTHER | END 2023-02-01 07:50 | disposition home or self-care (01) | LOC: ATC 00:38 | DX: Z43.6 Encounter for attention to other artificial openings of urinary tract (principal); Z87.440 Personal history of urinary (tract) infections; E03.9 Hypothyroidism, unspecified; Z79.899 Other long term (current) drug therapy; Z79.82 Long term (current) use of aspirin; Z88.6 Allergy status to analgesic agent | CPT/HCPCS: 99211 ==

== ENCOUNTER 2023-02-08 00:20 | Day surgery (SDC) | payer MEDICARE, OTHER | END 2023-02-08 07:50 | disposition home or self-care (01) | LOC: ATC 00:20 | DX: Z43.6 Encounter for attention to other artificial openings of urinary tract (principal); Z87.440 Personal history of urinary (tract) infections; E03.9 Hypothyroidism, unspecified; Z88.6 Allergy status to analgesic agent; Z79.899 Other long term (current) drug therapy | CPT/HCPCS: 99211 ==

== ENCOUNTER 2023-02-15 00:53 | Day surgery (SDC) | payer MEDICARE, OTHER | END 2023-02-15 08:16 | disposition home or self-care (01) | LOC: ATC 00:53 | DX: Z43.6 Encounter for attention to other artificial openings of urinary tract (principal); Z87.440 Personal history of urinary (tract) infections; N40.0 Benign prostatic hyperplasia without lower urinary tract symptoms; C67.9 Malignant neoplasm of bladder, unspecified; E03.9 Hypothyroidism, unspecified; E78.00 Pure hypercholesterolemia, unspecified | CPT/HCPCS: 99211 ==

== ENCOUNTER 2023-02-22 01:02 | Day surgery (SDC) | payer MEDICARE, OTHER ==
[2023-02-22 07:41] VITALS: BP 110/66
== END 2023-02-22 07:50 | disposition home or self-care (01) ==
LOC: ATC 01:02
DX: Z46.6 Encounter for fitting and adjustment of urinary device (principal); Z93.6 Other artificial openings of urinary tract status
CPT/HCPCS: 99211

== ENCOUNTER 2023-03-01 00:36 | Day surgery (SDC) | payer MEDICARE, OTHER ==
[2023-03-01 08:26] VITALS: BP 112/60
== END 2023-03-01 08:30 | disposition home or self-care (01) ==
LOC: ATC 00:36
DX: Z43.6 Encounter for attention to other artificial openings of urinary tract (principal); Z87.440 Personal history of urinary (tract) infections
CPT/HCPCS: 99211

== ENCOUNTER 2023-03-08 00:29 | Day surgery (SDC) | payer MEDICARE, OTHER ==
[2023-03-08 08:38] VITALS: BP 108/60
== END 2023-03-08 08:40 | disposition home or self-care (01) ==
LOC: ATC 00:29
DX: Z43.6 Encounter for attention to other artificial openings of urinary tract (principal); Z87.440 Personal history of urinary (tract) infections; E03.9 Hypothyroidism, unspecified; N18.32 Chronic kidney disease, stage 3b; D63.1 Anemia in chronic kidney disease; Z88.6 Allergy status to analgesic agent; Z79.890 Hormone replacement therapy; Z79.899 Other long term (current) drug therapy
CPT/HCPCS: 99211

== ENCOUNTER 2023-03-15 00:40 | Day surgery (SDC) | payer MEDICARE, OTHER | END 2023-03-15 07:57 | disposition home or self-care (01) | LOC: ATC 00:40 | DX: Z43.6 Encounter for attention to other artificial openings of urinary tract (principal); E03.9 Hypothyroidism, unspecified; Z88.6 Allergy status to analgesic agent; Z79.899 Other long term (current) drug therapy; Z79.890 Hormone replacement therapy; Z85.51 Personal history of malignant neoplasm of bladder; Z87.440 Personal history of urinary (tract) infections | CPT/HCPCS: 99211 ==

== ENCOUNTER 2023-03-29 07:39 | Day surgery (SDC) | payer MEDICARE, OTHER ==
[2023-03-29 07:45] VITALS: BP 100/59
== END 2023-03-29 07:59 | disposition home or self-care (01) ==
LOC: ATC 07:39
DX: Z46.6 Encounter for fitting and adjustment of urinary device (principal); Z87.440 Personal history of urinary (tract) infections; Z93.6 Other artificial openings of urinary tract status; Z88.8 Allergy status to other drugs, medicaments and biological substances
CPT/HCPCS: 99211

== ENCOUNTER 2023-04-05 01:06 | Day surgery (SDC) | payer MEDICARE, OTHER ==
[2023-04-05 07:50] VITALS: BP 117/69
== END 2023-04-05 07:59 | disposition home or self-care (01) ==
LOC: ATC 01:06
DX: Z46.6 Encounter for fitting and adjustment of urinary device (principal); Z93.6 Other artificial openings of urinary tract status; Z87.440 Personal history of urinary (tract) infections; E03.9 Hypothyroidism, unspecified; Z85.89 Personal history of malignant neoplasm of other organs and systems; Z88.6 Allergy status to analgesic agent; Z79.82 Long term (current) use of aspirin; Z79.899 Other long term (current) drug therapy
CPT/HCPCS: 99211

== ENCOUNTER 2023-04-13 02:23 | Day surgery (SDC) | payer MEDICARE, OTHER ==
[2023-04-13 08:05] VITALS: BP 117/67
== END 2023-04-13 07:55 | disposition home or self-care (01) ==
LOC: ATC 02:23
DX: Z43.6 Encounter for attention to other artificial openings of urinary tract (principal); E03.9 Hypothyroidism, unspecified; N40.0 Benign prostatic hyperplasia without lower urinary tract symptoms; Z87.440 Personal history of urinary (tract) infections; Z85.51 Personal history of malignant neoplasm of bladder; Z88.2 Allergy status to sulfonamides; Z79.890 Hormone replacement therapy; Z79.899 Other long term (current) drug therapy
CPT/HCPCS: 99211

== ENCOUNTER 2023-04-19 03:25 | Day surgery (SDC) | payer MEDICARE, OTHER ==
[2023-04-19 08:11] VITALS: BP 130/61
== END 2023-04-19 08:25 | disposition home or self-care (01) ==
LOC: ATC 03:25
DX: Z43.6 Encounter for attention to other artificial openings of urinary tract (principal); Z87.440 Personal history of urinary (tract) infections; E03.9 Hypothyroidism, unspecified; E78.00 Pure hypercholesterolemia, unspecified
CPT/HCPCS: 99212

== ENCOUNTER 2023-04-26 03:18 | Day surgery (SDC) | payer MEDICARE, OTHER ==
[2023-04-26 07:37] VITALS: BP 104/63
== END 2023-04-26 07:47 | disposition home or self-care (01) ==
LOC: ATC 03:18
DX: Z43.6 Encounter for attention to other artificial openings of urinary tract (principal); Z87.440 Personal history of urinary (tract) infections
CPT/HCPCS: 99211

== ENCOUNTER 2023-05-17 01:16 | Day surgery (SDC) | payer MEDICARE, OTHER ==
[2023-05-17 08:05] VITALS: BP 107/61
[2023-05-17 10:00] LABS: Creatinine, Urine Random 72.4 mg/dL (27.00-270.00)
[2023-05-17 10:29] LABS: Microalb/Creat Ratio UR, Rand 209.945 mg/g (0.000-30.000)
--- NOTE | 2023-05-17 10:58 | NUR ---
BLOOD DRAWN FROM L AC. PT TOLERATED WELL.
== END 2023-05-17 08:10 | disposition home or self-care (01) ==
LOC: ATC 01:16
PROVIDERS: Physician Assistant
DX: Z43.6 Encounter for attention to other artificial openings of urinary tract (principal); Z87.440 Personal history of urinary (tract) infections
CPT/HCPCS: 36415; 82043; 82306; 82570; 83970; 99211

== ENCOUNTER 2023-05-24 01:04 | Day surgery (SDC) | payer MEDICARE, OTHER ==
[2023-05-24 07:31] VITALS: BP 115/65
== END 2023-05-24 07:59 | disposition home or self-care (01) ==
LOC: ATC 01:04
DX: Z93.6 Other artificial openings of urinary tract status (principal); F03.90 Unspecified dementia, unspecified severity, without behavioral disturbance, psychotic disturbance, mood disturbance, and anxiety; E78.00 Pure hypercholesterolemia, unspecified; E03.9 Hypothyroidism, unspecified; Z88.6 Allergy status to analgesic agent; Z87.440 Personal history of urinary (tract) infections
CPT/HCPCS: 99212

== ENCOUNTER 2023-05-31 00:21 | Day surgery (SDC) | payer MEDICARE, OTHER ==
[2023-05-31 08:09] VITALS: BP 115/69
[2023-05-31] MEDS ORDERED: LISINOPRIL2.5 MG PO (08:34)
== END 2023-05-31 08:18 | disposition home or self-care (01) ==
LOC: ATC 00:21
DX: Z43.6 Encounter for attention to other artificial openings of urinary tract (principal); E03.9 Hypothyroidism, unspecified; N40.0 Benign prostatic hyperplasia without lower urinary tract symptoms; N18.32 Chronic kidney disease, stage 3b; D63.1 Anemia in chronic kidney disease; Z88.6 Allergy status to analgesic agent; Z79.890 Hormone replacement therapy; Z79.899 Other long term (current) drug therapy
CPT/HCPCS: 99211

== ENCOUNTER 2023-06-07 01:56 | Day surgery (SDC) | payer MEDICARE, OTHER ==
[~2023-06-07 01:56] MED LIST changes: +LISINOPRIL2.5 MG PO
[2023-06-07 08:34] VITALS: BP 106/67
== END 2023-06-07 08:44 | disposition home or self-care (01) ==
LOC: ATC 01:56
DX: Z43.6 Encounter for attention to other artificial openings of urinary tract (principal); F03.90 Unspecified dementia, unspecified severity, without behavioral disturbance, psychotic disturbance, mood disturbance, and anxiety; E78.00 Pure hypercholesterolemia, unspecified; E03.9 Hypothyroidism, unspecified; Z88.6 Allergy status to analgesic agent; Z87.440 Personal history of urinary (tract) infections
CPT/HCPCS: 99211

== ENCOUNTER 2023-06-14 02:33 | Day surgery (SDC) | payer MEDICARE, OTHER ==
[2023-06-14 07:39] VITALS: BP 116/63
== END 2023-06-14 07:53 | disposition home or self-care (01) ==
LOC: ATC 02:33
DX: Z43.6 Encounter for attention to other artificial openings of urinary tract (principal); Z87.440 Personal history of urinary (tract) infections; E11.22 Type 2 diabetes mellitus with diabetic chronic kidney disease; N18.31 Chronic kidney disease, stage 3a; E03.9 Hypothyroidism, unspecified; E78.5 Hyperlipidemia, unspecified; Z85.51 Personal history of malignant neoplasm of bladder; Z88.8 Allergy status to other drugs, medicaments and biological substances; Z79.82 Long term (current) use of aspirin; Z79.890 Hormone replacement therapy; Z79.899 Other long term (current) drug therapy
CPT/HCPCS: 99211

== ENCOUNTER 2023-06-21 02:15 | Day surgery (SDC) | payer MEDICARE, OTHER ==
[2023-06-21 07:39] VITALS: BP 100/62
== END 2023-06-21 07:51 | disposition home or self-care (01) ==
LOC: ATC 02:15
DX: Z43.6 Encounter for attention to other artificial openings of urinary tract (principal); Z87.440 Personal history of urinary (tract) infections; E03.9 Hypothyroidism, unspecified; E78.5 Hyperlipidemia, unspecified; E11.22 Type 2 diabetes mellitus with diabetic chronic kidney disease; N18.31 Chronic kidney disease, stage 3a; N40.1 Benign prostatic hyperplasia with lower urinary tract symptoms; Z85.51 Personal history of malignant neoplasm of bladder; Z79.82 Long term (current) use of aspirin; Z79.899 Other long term (current) drug therapy
CPT/HCPCS: 99211

== ENCOUNTER 2023-06-28 02:29 | Day surgery (SDC) | payer MEDICARE, OTHER ==
[2023-06-28 07:48] VITALS: BP 106/58
== END 2023-06-28 07:51 | disposition home or self-care (01) ==
LOC: ATC 02:29
DX: Z43.6 Encounter for attention to other artificial openings of urinary tract (principal); E03.9 Hypothyroidism, unspecified; E78.00 Pure hypercholesterolemia, unspecified; E11.22 Type 2 diabetes mellitus with diabetic chronic kidney disease; N18.31 Chronic kidney disease, stage 3a; N40.1 Benign prostatic hyperplasia with lower urinary tract symptoms; E55.9 Vitamin D deficiency, unspecified; G31.89 Other specified degenerative diseases of nervous system; L01.00 Impetigo, unspecified; Z87.440 Personal history of urinary (tract) infections; Z85.51 Personal history of malignant neoplasm of bladder
CPT/HCPCS: 99211

== ENCOUNTER 2023-07-05 00:36 | Day surgery (SDC) | payer MEDICARE, OTHER ==
[2023-07-05 07:36] VITALS: BP 98/62
== END 2023-07-05 07:50 | disposition home or self-care (01) ==
LOC: ATC 00:36
DX: Z43.6 Encounter for attention to other artificial openings of urinary tract (principal); E03.9 Hypothyroidism, unspecified; E11.22 Type 2 diabetes mellitus with diabetic chronic kidney disease; N18.31 Chronic kidney disease, stage 3a; N40.1 Benign prostatic hyperplasia with lower urinary tract symptoms; G31.83 Neurocognitive disorder with Lewy bodies; D48.5 Neoplasm of uncertain behavior of skin; E78.00 Pure hypercholesterolemia, unspecified; Z87.440 Personal history of urinary (tract) infections; Z85.51 Personal history of malignant neoplasm of bladder; Z55.9 Problems related to education and literacy, unspecified
CPT/HCPCS: 99212

== ENCOUNTER 2023-07-12 01:22 | Day surgery (SDC) | payer MEDICARE, OTHER ==
[2023-07-12 07:42] VITALS: BP 114/65
== END 2023-07-12 07:50 | disposition home or self-care (01) ==
LOC: ATC 01:22
DX: Z43.6 Encounter for attention to other artificial openings of urinary tract (principal); E03.9 Hypothyroidism, unspecified; E78.00 Pure hypercholesterolemia, unspecified; E11.22 Type 2 diabetes mellitus with diabetic chronic kidney disease; N18.31 Chronic kidney disease, stage 3a; N40.0 Benign prostatic hyperplasia without lower urinary tract symptoms; E55.9 Vitamin D deficiency, unspecified; G31.83 Neurocognitive disorder with Lewy bodies; F02.80 Dementia in other diseases classified elsewhere, unspecified severity, without behavioral disturbance, psychotic disturbance, mood disturbance, and anxiety; Z87.440 Personal history of urinary (tract) infections
CPT/HCPCS: 99211

== ENCOUNTER 2023-07-20 06:54 | Day surgery (SDC) | payer MEDICARE, OTHER ==
[2023-07-20 07:39] VITALS: BP 112/63
[2023-07-20 08:11] LABS: Source, Urine Nephrostomy
[2023-07-20 08:19] LABS: Appearance, Urine Cloudy (Clear); Bilirubin, Urine Neg (Neg); Blood, Urine 5+ (Neg); Glucose Qualitative, Urine Neg (Neg); Ketones, Urine Neg (Neg); Leukocyte Esterase, Urine 3+ (Neg); Nitrite, Urine Pos (Neg); Protein, Urine 2+ (Neg); Urobilinogen, Urine NORM (Normal)
[2023-07-20 08:26] LABS: Color, Urine Pale Yellow (P-Yellow)
[2023-07-20 08:27] LABS: Bacteria Many /hpf; Squamous Epithelial Cells Rare /hpf (Few); White Blood Cells, Urine TNTC /hpf (0-5)
== END 2023-07-20 08:04 | disposition home or self-care (01) ==
LOC: ATC 06:54
PROVIDERS: Physician Assistant
DX: Z43.6 Encounter for attention to other artificial openings of urinary tract (principal); E78.00 Pure hypercholesterolemia, unspecified; E03.9 Hypothyroidism, unspecified; E11.22 Type 2 diabetes mellitus with diabetic chronic kidney disease; N18.31 Chronic kidney disease, stage 3a; N40.1 Benign prostatic hyperplasia with lower urinary tract symptoms; E55.9 Vitamin D deficiency, unspecified; Z85.51 Personal history of malignant neoplasm of bladder; Z87.440 Personal history of urinary (tract) infections
CPT/HCPCS: 81001; 87077; 87086; 87186; 99212

== ENCOUNTER 2023-07-26 01:01 | Day surgery (SDC) | payer MEDICARE, OTHER ==
[2023-07-26 07:45] VITALS: BP 108/62
== END 2023-07-26 07:58 | disposition home or self-care (01) ==
LOC: ATC 01:01
DX: Z43.6 Encounter for attention to other artificial openings of urinary tract (principal); E03.9 Hypothyroidism, unspecified; E78.5 Hyperlipidemia, unspecified; E11.22 Type 2 diabetes mellitus with diabetic chronic kidney disease; N18.31 Chronic kidney disease, stage 3a; N40.1 Benign prostatic hyperplasia with lower urinary tract symptoms
CPT/HCPCS: 99211

== ENCOUNTER 2023-08-02 01:41 | Day surgery (SDC) | payer MEDICARE, OTHER ==
[2023-08-02 08:43] VITALS: BP 102/58
[2023-08-02] MEDS ORDERED: Cipro500 MG PO (08:46)
== END 2023-08-02 08:54 | disposition home or self-care (01) ==
LOC: ATC 01:41
DX: Z43.6 Encounter for attention to other artificial openings of urinary tract (principal); Z87.440 Personal history of urinary (tract) infections; E03.9 Hypothyroidism, unspecified; E78.5 Hyperlipidemia, unspecified; E11.22 Type 2 diabetes mellitus with diabetic chronic kidney disease; N18.31 Chronic kidney disease, stage 3a; Z88.6 Allergy status to analgesic agent; Z79.890 Hormone replacement therapy; Z79.82 Long term (current) use of aspirin; Z79.899 Other long term (current) drug therapy
CPT/HCPCS: 99211

== ENCOUNTER → 2023-08-13 | Outpatient (CLI) | payer MEDICARE, OTHER ==
[2023-08-13 15:55] LABS: Source, Urine Clean Catch
[2023-08-13 17:04] LABS: Bacteria Many /hpf; Mucus Light (0-Heavy); Red Blood Cells, Urine 50-100 /hpf (0-2); Squamous Epithelial Cells Few /hpf (Few); White Blood Cells, Urine TNTC /hpf (0-5)
== END | disposition home or self-care (01) ==
LOC: LAB SHORT 15:47 → LAB 15:47
PROVIDERS: Nurse Practitioner Family
DX: R30.0 Dysuria (principal)
CPT/HCPCS: 81015; 87077; 87086; 87186

== ENCOUNTER 2023-08-16 00:10 | Day surgery (SDC) | payer MEDICARE, OTHER ==
[2023-08-16 08:14] VITALS: BP 111/67
== END 2023-08-16 08:26 | disposition home or self-care (01) ==
LOC: ATC 00:10
DX: Z43.6 Encounter for attention to other artificial openings of urinary tract (principal); Z87.440 Personal history of urinary (tract) infections; E03.9 Hypothyroidism, unspecified; E11.22 Type 2 diabetes mellitus with diabetic chronic kidney disease; N18.30 Chronic kidney disease, stage 3 unspecified; E78.5 Hyperlipidemia, unspecified
CPT/HCPCS: 99211

== ENCOUNTER 2023-08-30 02:09 | Day surgery (SDC) | payer MEDICARE, OTHER ==
[2023-08-30 07:57] VITALS: BP 108/68
== END 2023-08-30 08:11 | disposition home or self-care (01) ==
LOC: ATC 02:09
DX: Z43.6 Encounter for attention to other artificial openings of urinary tract (principal); E03.9 Hypothyroidism, unspecified; E78.5 Hyperlipidemia, unspecified; E11.22 Type 2 diabetes mellitus with diabetic chronic kidney disease; N18.31 Chronic kidney disease, stage 3a; N40.1 Benign prostatic hyperplasia with lower urinary tract symptoms; E55.9 Vitamin D deficiency, unspecified; Z87.440 Personal history of urinary (tract) infections
CPT/HCPCS: 99211

== ENCOUNTER 2023-09-13 02:11 | Day surgery (SDC) | payer MEDICARE, OTHER ==
[2023-09-13 07:44] VITALS: BP 116/64
== END 2023-09-13 07:46 | disposition home or self-care (01) ==
LOC: ATC 02:11
DX: Z43.6 Encounter for attention to other artificial openings of urinary tract (principal); Z87.440 Personal history of urinary (tract) infections; E03.9 Hypothyroidism, unspecified; E78.5 Hyperlipidemia, unspecified; E11.22 Type 2 diabetes mellitus with diabetic chronic kidney disease; N18.31 Chronic kidney disease, stage 3a; N40.1 Benign prostatic hyperplasia with lower urinary tract symptoms; Z88.8 Allergy status to other drugs, medicaments and biological substances; Z79.82 Long term (current) use of aspirin; Z79.890 Hormone replacement therapy; Z79.899 Other long term (current) drug therapy
CPT/HCPCS: 99211

== ENCOUNTER 2023-09-20 02:25 | Day surgery (SDC) | payer MEDICARE, OTHER ==
[2023-09-20 08:35] VITALS: BP 123/61
== END 2023-09-20 08:46 | disposition home or self-care (01) ==
LOC: ATC 02:25
DX: Z43.6 Encounter for attention to other artificial openings of urinary tract (principal); N18.31 Chronic kidney disease, stage 3a; E78.00 Pure hypercholesterolemia, unspecified; E03.9 Hypothyroidism, unspecified; Z87.440 Personal history of urinary (tract) infections
CPT/HCPCS: 99211

== ENCOUNTER 2023-09-27 00:33 | Day surgery (SDC) | payer MEDICARE, OTHER ==
[2023-09-27 08:14] VITALS: BP 124/65
== END 2023-09-27 08:26 | disposition home or self-care (01) ==
LOC: ATC 00:33
DX: Z43.6 Encounter for attention to other artificial openings of urinary tract (principal); N18.31 Chronic kidney disease, stage 3a; Z87.440 Personal history of urinary (tract) infections
CPT/HCPCS: 99211

== ENCOUNTER 2023-10-04 02:42 | Day surgery (SDC) | payer MEDICARE, OTHER ==
[2023-10-04 07:59] VITALS: BP 118/57
== END 2023-10-04 08:11 | disposition home or self-care (01) ==
LOC: ATC 02:42
DX: Z43.6 Encounter for attention to other artificial openings of urinary tract (principal); N18.31 Chronic kidney disease, stage 3a; Z87.440 Personal history of urinary (tract) infections
CPT/HCPCS: 99211

== ENCOUNTER 2023-10-11 02:55 | Day surgery (SDC) | payer MEDICARE, OTHER ==
[2023-10-11 07:40] VITALS: BP 105/65
== END 2023-10-11 07:48 | disposition home or self-care (01) ==
LOC: ATC 02:55
DX: Z43.6 Encounter for attention to other artificial openings of urinary tract (principal); Z87.440 Personal history of urinary (tract) infections; N18.30 Chronic kidney disease, stage 3 unspecified; E03.9 Hypothyroidism, unspecified; E78.00 Pure hypercholesterolemia, unspecified
CPT/HCPCS: 99211

== ENCOUNTER 2023-10-12 10:48 | Day surgery (SDC) | payer MEDICARE, OTHER ==
[~2023-10-12] VITALS: Ht 162.6 cm; Wt 59.0 kg
[2023-10-12 11:22] VITALS: BP 154/76
[2023-10-12 15:00] VITALS: BP 153/81
--- NOTE | 2023-10-12 15:05 | NUR ---
pt returns from lab. bilat neph tubes exchanged. new bags in place. 300cc of urine discarded prior to exchange. vss. plans to dc to home. no sedation used during procedure.
== END 2023-10-12 15:41 | disposition home or self-care (01) ==
LOC: MHTC 10:48
DX: Z43.6 Encounter for attention to other artificial openings of urinary tract (principal); C67.9 Malignant neoplasm of bladder, unspecified; N40.0 Benign prostatic hyperplasia without lower urinary tract symptoms; F03.90 Unspecified dementia, unspecified severity, without behavioral disturbance, psychotic disturbance, mood disturbance, and anxiety; E78.00 Pure hypercholesterolemia, unspecified; E03.9 Hypothyroidism, unspecified; Z79.899 Other long term (current) drug therapy; Z88.8 Allergy status to other drugs, medicaments and biological substances
CPT/HCPCS: 50435; C1729; C1769; J7050; Q9967

== ENCOUNTER 2023-10-18 04:10 | Day surgery (SDC) | payer MEDICARE, OTHER ==
[2023-10-18 08:07] VITALS: BP 101/51
== END 2023-10-18 08:08 | disposition home or self-care (01) ==
LOC: ATC 04:10
DX: Z43.6 Encounter for attention to other artificial openings of urinary tract (principal); Z87.440 Personal history of urinary (tract) infections
CPT/HCPCS: 99211

== ENCOUNTER 2023-10-25 04:03 | Day surgery (SDC) | payer MEDICARE, OTHER ==
[2023-10-25 08:20] VITALS: BP 104/62
== END 2023-10-25 08:22 | disposition home or self-care (01) ==
LOC: ATC 04:03
DX: Z43.6 Encounter for attention to other artificial openings of urinary tract (principal); Z87.440 Personal history of urinary (tract) infections; N18.31 Chronic kidney disease, stage 3a
CPT/HCPCS: 99211

== ENCOUNTER → 2023-10-28 | Outpatient (CLI) | payer MEDICARE, OTHER | LOC: LAB 11:59 → LAB SHORT 11:59 | DX: C44.222 Squamous cell carcinoma of skin of right ear and external auricular canal (principal) | CPT/HCPCS: 88305 ==

== ENCOUNTER 2023-11-01 00:31 | Day surgery (SDC) | payer MEDICARE, OTHER ==
[2023-11-01 08:31] VITALS: BP 136/60
== END 2023-11-01 08:43 | disposition home or self-care (01) ==
LOC: ATC 00:31
DX: Z43.6 Encounter for attention to other artificial openings of urinary tract (principal); N39.0 Urinary tract infection, site not specified; N18.31 Chronic kidney disease, stage 3a; Z87.440 Personal history of urinary (tract) infections
CPT/HCPCS: 99211

== ENCOUNTER 2023-11-09 01:44 | Day surgery (SDC) | payer MEDICARE, OTHER ==
[2023-11-09 08:59] VITALS: BP 97/58
== END 2023-11-09 09:02 | disposition home or self-care (01) ==
LOC: ATC 01:44
DX: Z43.6 Encounter for attention to other artificial openings of urinary tract (principal); N18.31 Chronic kidney disease, stage 3a
CPT/HCPCS: 99211

== ENCOUNTER 2023-11-16 02:50 | Day surgery (SDC) | payer MEDICARE, OTHER ==
[2023-11-16 08:42] VITALS: BP 134/72
== END 2023-11-16 08:46 | disposition home or self-care (01) ==
LOC: ATC 02:50
DX: Z43.6 Encounter for attention to other artificial openings of urinary tract (principal); I12.9 Hypertensive chronic kidney disease with stage 1 through stage 4 chronic kidney disease, or unspecified chronic kidney disease; N18.31 Chronic kidney disease, stage 3a; E03.9 Hypothyroidism, unspecified; Z87.440 Personal history of urinary (tract) infections; Z79.899 Other long term (current) drug therapy
CPT/HCPCS: 99211

== ENCOUNTER 2023-11-22 04:24 | Day surgery (SDC) | payer MEDICARE, OTHER ==
[2023-11-22 12:00] VITALS: BP 112/66
== END 2023-11-22 12:06 | disposition home or self-care (01) ==
LOC: ATC 04:24
DX: Z43.6 Encounter for attention to other artificial openings of urinary tract (principal); N18.31 Chronic kidney disease, stage 3a; E78.00 Pure hypercholesterolemia, unspecified; E03.9 Hypothyroidism, unspecified; Z87.440 Personal history of urinary (tract) infections
CPT/HCPCS: 99212

== ENCOUNTER → 2023-11-24 | Outpatient (CLI) | payer MEDICARE, OTHER | LOC: LAB SHORT 15:25 → LAB 15:25 | DX: N39.0 Urinary tract infection, site not specified (principal) | CPT/HCPCS: 87077; 87086; 87186 ==

== ENCOUNTER 2023-12-06 01:55 | Day surgery (SDC) | payer MEDICARE, OTHER ==
[2023-12-06 08:41] VITALS: BP 120/68
== END 2023-12-06 08:57 | disposition home or self-care (01) ==
LOC: ATC 01:55
DX: Z43.6 Encounter for attention to other artificial openings of urinary tract (principal); Z87.440 Personal history of urinary (tract) infections; N18.31 Chronic kidney disease, stage 3a; E03.9 Hypothyroidism, unspecified; Z88.8 Allergy status to other drugs, medicaments and biological substances; Z79.899 Other long term (current) drug therapy
CPT/HCPCS: 99212

== ENCOUNTER 2023-12-13 02:45 | Day surgery (SDC) | payer MEDICARE, OTHER ==
[2023-12-13 08:34] VITALS: BP 135/61
[2023-12-13] MEDS ORDERED: Amoxicillin500 MG PO (08:41)
== END 2023-12-13 08:45 | disposition home or self-care (01) ==
LOC: ATC 02:45
DX: Z43.6 Encounter for attention to other artificial openings of urinary tract (principal); N18.31 Chronic kidney disease, stage 3a; Z87.440 Personal history of urinary (tract) infections
CPT/HCPCS: 99211